=== PATIENT | male | born 1945 | race Caucasian/White ===

== ENCOUNTER 2021-09-03 00:19 | Inpatient (IN) | payer MEDICARE, MEDICAID ==
[2021-09-03] VITALS (61 sets, daily range): BP systolic 70–167; BP diastolic 35–84
[~2021-09-03] VITALS: Ht 175.3 cm; Wt 70.8 kg
[2021-09-03] MEDS ORDERED: ONDANSETRON HCL 4MG/2ML INJ IV STA (00:24)
[2021-09-03] MEDS ORDERED: ETOMIDATE 2MG/ML 10ML VIAL IV ONE (00:30)
[2021-09-03] MEDS ORDERED: SODIUM CHLORIDE 0.9% 1,000 ML IV ONE (00:30)
[2021-09-03] MEDS ORDERED: PROPOFOL 10MG/ML 100ML 100 ML IV ONE (00:30)
[2021-09-03] MEDS ORDERED: VANCOMYCIN 1 G PREMIX 200 ML IV ONE (00:30)
[2021-09-03] MEDS ORDERED: VECURONIUM BROMIDE 10 MG/VIAL IV ONE (00:30)
[2021-09-03] MEDS ORDERED: PIPERACILLIN/TAZ 3.375G PREMIX 50 ML IV ONE (00:30)
[2021-09-03 01:31] LABS: BG BASE EXCESS -4.6 mmol/L (-2.0-2.0); BG CARBOXYHEMOGLOBIN 0.3 % (0.5-1.5); BG DEOXYHEMOGLOBIN 1.6 % (0.0-5.0); BG FRACTION INSPIRED OXYGEN 100; BG HCO3 ACT 22.5 mmol/L (22.0-26.0); BG METHEMOGLOBIN 0.2 % (0.0-1.5); BG OXYGEN SATURATION 98.4 % (92.0-98.5); BG OXYHEMOGLOBIN 97.9 % (94.0-97.0); BG PCO2 50.3 mmHg (35.0-45.0); BG PH 7.269 (7.350-7.450); BG PO2 161.3 mmHg (75.0-100.0); BG SAMPLE SITE RIGHT RADIAL; BG TOTAL HEMOGLOBIN 12.6 g/dL (12.0-18.0); BG TOTAL RESPIRATORY RATE 22 b/min; BG VENT MODE VENT - AC
[2021-09-03 01:52] LABS: HEMATOCRIT. 37.3 % (42.0-52.0); HEMOGLOBIN. 11.7 g/dL (14.0-18.0); MEAN CORPUSCULAR HEMOGLOBIN 29.4 pg (28.0-32.0); MEAN CORPUSCULAR VOLUME 93.9 fL (80.0-94.0); MEAN PLATELET VOLUME 10.8 fl (7.4-10.4); PLATELET 293 x1000/uL (130-400); RED BLOOD CELL COUNT 3.97 mill/uL (4.7-6.1); RED CELL DISTRIBUTION WIDTH 16.4 % (11.6-14.6)
[2021-09-03 01:54] LABS: CLARITY URINE CLEAR (CLEAR); COLOR URINE YELLOW (YELLOW); KETONES URINE NEGATIVE (NEGATIVE); LEUKOCYTE ESTERASE URINE NEGATIVE (NEGATIVE); NITRITE URINE NEGATIVE (NEGATIVE); OCCULT BLOOD URINE 1+ (NEGATIVE); PROTEIN URINE TRACE (NEGATIVE); SPECIFIC GRAVITY URINE 1.017 (1.005-1.030); UROBILINOGEN URINE 0.2 E.U./dL (0.2-1.0)
[2021-09-03 01:57] LABS: CHLORIDE 123 mEq/L (98-107)
[2021-09-03] MEDS ORDERED: NOREPINEPHRINE 8MG/250ML PMX 250 ML IV STA (01:59)
[2021-09-03] MEDS ORDERED: HEPARIN 25,000 UNITS PREMIX 250 ML IV STA (02:13)
[2021-09-03] MEDS ORDERED: HEPARIN 5000 UNITS/ML VIAL IV ONE (02:15)
[2021-09-03] MEDS ORDERED: NOREPINEPHRINE 8 MG in DEXT 5% WATER 242 ML IV PRN ×2 (02:30→09:45)
[2021-09-03] MEDS ORDERED: NOREPINEPHRINE 8 MG in DEXT 5% WATER 250 ML IV PRN (02:30)
[2021-09-03] MEDS ORDERED: HEPARIN 80 UNITS/KG BOLUS IV SCH (03:00)
[2021-09-03] MEDS ORDERED: HEPARIN BOLUS PRN aPTT 37-44 IV (03:00)
[2021-09-03] MEDS ORDERED: HEPARIN 25,000 UNITS PREMIX 250 ML IV SCH (03:00)
[2021-09-03] MEDS ORDERED: HEPARIN BOLUS PRN aPTT <36 IV (03:00)
[2021-09-03 03:08] LABS: INR 1.1; PARTIAL THROMBOPLASTIN TIME 27.2 sec (23.4-31.0); PROTHROMBIN TIME 12.2 sec (9.6-11.0)
[2021-09-03 05:25] LABS: PLATELET ESTIMATE NORMAL
[2021-09-03] MEDS ORDERED: PANTOPRAZOLE SODIUM 40 MG/VIAL IV SCH (10:00)
[2021-09-03] MEDS ORDERED: SODIUM CHLORIDE 0.9% 1,000 ML IV SCH (10:00)
[2021-09-03] MEDS: PROPOFOL 10MG/ML 100ML 100 ML IV PRN ×3 (10:10→22:47)
[2021-09-03 10:34] LABS: BG BASE EXCESS -2.4 mmol/L (-2.0-2.0); BG CARBOXYHEMOGLOBIN 0.3 % (0.5-1.5); BG DEOXYHEMOGLOBIN 5.4 % (0.0-5.0); BG FRACTION INSPIRED OXYGEN 80; BG HCO3 ACT 25.3 mmol/L (22.0-26.0); BG METHEMOGLOBIN 0.3 % (0.0-1.5); BG OXYGEN SATURATION 94.6 % (92.0-98.5); BG PCO2 57.3 mmHg (35.0-45.0); BG PH 7.263 (7.350-7.450); BG PO2 86.4 mmHg (75.0-100.0); BG SAMPLE SITE LEFT RADIAL; BG TOTAL HEMOGLOBIN 12.1 g/dL (12.0-18.0); BG TOTAL RESPIRATORY RATE 23 b/min; BG VENT MODE VENT - AC
[2021-09-03] MEDS: IPRATROPIUM/ALBUTEROL 0.5-3(2.5)MG/3ML NEB HHN SCH ×3 (12:58→20:07)
[2021-09-03] MEDS ORDERED: NOREPINEPHRINE 32 MG in DEXT 5% WATER 218 ML IV PRN (13:00)
[2021-09-03] MEDS ORDERED: PANTOPRAZOLE 80 MG in SODIUM CHLORIDE 0.9% 100 ML IV SCH ×2 (13:00→14:00)
[2021-09-03] MEDS ORDERED: DEXT 5%/0.45% NACL 1000ML 1,000 ML IV SCH (13:00)
[2021-09-03] MEDS: DEXTROSE 5% WATER 1,000 ML IV SCH ×2 (13:03→22:45)
[2021-09-03] MEDS ORDERED: PHENYLEPHRINE 50 MG in DEXT 5% WATER 245 ML IV PRN (14:00)
[2021-09-03 15:06] LABS: HEMATOCRIT 38.3 % (42.0-52.0); HEMOGLOBIN 11.9 g/dL (14.0-18.0)
[2021-09-03 15:29] LABS: CREATINE KINASE 107 IU/L (39-308)
[2021-09-03] MEDS: PIPERACILLIN/TAZOBACTAM 3.375 G in DEXTROSE 5% WATER 50 ML IV SCH ×2 (15:41→22:45)
[2021-09-03] MEDS: NOREPINEPHRINE 32 MG in DEXT 5% WATER 218 ML IV PRN (15:42)
[2021-09-03] MEDS ORDERED: IPRATROPIUM/ALBUTEROL 0.5-3(2.5)MG/3ML NEB HHN SCH (16:00)
[2021-09-03] MEDS ORDERED: OCTREOTIDE 1,000 MCG in SODIUM CHLORIDE 0.9% 98 ML IV SCH (16:30)
[2021-09-03 19:02] LABS: FOLIC ACID (FOLATE) SERUM 12.5 ng/mL (>5.38)
[2021-09-03] MEDS ORDERED: VANCOMYCIN 750 MG PREMIX 150 ML IV SCH (20:00)
[2021-09-03] MEDS: PANTOPRAZOLE SODIUM 40 MG/VIAL IV SCH (21:36)
[2021-09-04] VITALS (92 sets, daily range): BP systolic 83–179; BP diastolic 46–111
[2021-09-04] MEDS: IPRATROPIUM/ALBUTEROL 0.5-3(2.5)MG/3ML NEB HHN SCH ×6 (00:29→21:16)
[2021-09-04 01:07] LABS: HEMATOCRIT. 34.7 % (42.0-52.0); HEMOGLOBIN. 10.9 g/dL (14.0-18.0); MEAN CORPUSCULAR HEMOGLOBIN 29.1 pg (28.0-32.0); MEAN CORPUSCULAR VOLUME 93.1 fL (80.0-94.0); MEAN PLATELET VOLUME 10.2 fl (7.4-10.4); PLATELET 240 x1000/uL (130-400); RED BLOOD CELL COUNT 3.72 mill/uL (4.7-6.1); RED CELL DISTRIBUTION WIDTH 16.2 % (11.6-14.6)
[2021-09-04] MEDS: PROPOFOL 10MG/ML 100ML 100 ML IV PRN ×3 (05:14→17:26)
[2021-09-04] MEDS: PIPERACILLIN/TAZOBACTAM 3.375 G in DEXTROSE 5% WATER 50 ML IV SCH ×3 (05:21→22:42)
[2021-09-04 06:02] LABS: HEMATOCRIT. 33.3 % (42.0-52.0); HEMOGLOBIN. 10.4 g/dL (14.0-18.0); MEAN CORPUSCULAR HEMOGLOBIN 29.5 pg (28.0-32.0); MEAN CORPUSCULAR VOLUME 94.4 fL (80.0-94.0); PLATELET 214 x1000/uL (130-400); RED BLOOD CELL COUNT 3.53 mill/uL (4.7-6.1); RED CELL DISTRIBUTION WIDTH 16.7 % (11.6-14.6)
[2021-09-04 07:03] LABS: PLATELET ESTIMATE NORMAL
[2021-09-04] MEDS: PANTOPRAZOLE SODIUM 40 MG/VIAL IV SCH ×2 (08:38→20:30)
[2021-09-04] MEDS: DEXTROSE 5% WATER 1,000 ML IV SCH ×2 (09:01→19:50)
[2021-09-04] MEDS ORDERED: DEXTROSE 50% WATER 50ML SYRINGE IV PRN (10:30)
[2021-09-04 11:10] LABS: BG BASE EXCESS 0.7 mmol/L (-2.0-2.0); BG CARBOXYHEMOGLOBIN 0.3 % (0.5-1.5); BG DEOXYHEMOGLOBIN 0.9 % (0.0-5.0); BG FRACTION INSPIRED OXYGEN 70; BG HCO3 ACT 25.6 mmol/L (22.0-26.0); BG METHEMOGLOBIN 0.2 % (0.0-1.5); BG OXYGEN SATURATION 99.1 % (92.0-98.5); BG OXYHEMOGLOBIN 98.6 % (94.0-97.0); BG PCO2 42.3 mmHg (35.0-45.0); BG PO2 156.8 mmHg (75.0-100.0); BG SAMPLE SITE RIGHT RADIAL; BG TOTAL HEMOGLOBIN 10.6 g/dL (12.0-18.0); BG VENT MODE VENT - AC
[2021-09-04] MEDS: BLOOD SUGAR DIAGNOSTIC STRIP TEST SCH ×2 (12:33→17:41)
[2021-09-04] MEDS: INSULIN LISPRO 100 UNITS/ML SUBCUT SCH ×2 (12:38→17:42)
[2021-09-04] MEDS ORDERED: IOHEXOL-300 100 ML BOTTLE ONE (12:57)
[2021-09-04] MEDS ORDERED: LIDOCAINE HCL 1% 20ML VIAL (Pyxis) INJ ONE (12:58)
[2021-09-04 14:48] LABS: PLATELET ESTIMATE NORMAL
[2021-09-04 15:13] LABS: HEMATOCRIT. 33.8 % (42.0-52.0); HEMOGLOBIN. 10.5 g/dL (14.0-18.0); MEAN CORPUSCULAR VOLUME 93.2 fL (80.0-94.0); MEAN PLATELET VOLUME 10.4 fl (7.4-10.4); PLATELET 192 x1000/uL (130-400); RED BLOOD CELL COUNT 3.63 mill/uL (4.7-6.1)
[2021-09-04 16:02] LABS: PLATELET ESTIMATE NORMAL
[2021-09-04 18:36] LABS: HEMATOCRIT. 29.9 % (42.0-52.0); HEMOGLOBIN. 9.5 g/dL (14.0-18.0); MEAN CORPUSCULAR HEMOGLOBIN 29.5 pg (28.0-32.0); MEAN CORPUSCULAR VOLUME 92.6 fL (80.0-94.0); MEAN PLATELET VOLUME 9.9 fl (7.4-10.4); PLATELET 171 x1000/uL (130-400); RED BLOOD CELL COUNT 3.23 mill/uL (4.7-6.1); RED CELL DISTRIBUTION WIDTH 15.8 % (11.6-14.6)
[2021-09-04 20:38] LABS: PLATELET ESTIMATE NORMAL
[2021-09-04] MEDS ORDERED: VANCOMYCIN 1 G PREMIX 200 ML IV SCH (21:00)
[2021-09-04] MEDS: NYSTATIN POWDER 15GM TOP SCH (22:43)
[2021-09-05] VITALS (97 sets, daily range): BP systolic 87–153; BP diastolic 43–74
[2021-09-05] MEDS: BLOOD SUGAR DIAGNOSTIC STRIP TEST SCH ×4 (00:35→18:02)
[2021-09-05] MEDS: PROPOFOL 10MG/ML 100ML 100 ML IV PRN ×3 (00:41→17:26)
[2021-09-05] MEDS: INSULIN LISPRO 100 UNITS/ML SUBCUT SCH ×4 (00:43→18:06)
[2021-09-05] MEDS: IPRATROPIUM/ALBUTEROL 0.5-3(2.5)MG/3ML NEB HHN SCH ×6 (00:47→20:02)
[2021-09-05] MEDS: DEXTROSE 5% WATER 1,000 ML IV SCH ×2 (05:31→20:51)
[2021-09-05] MEDS: PIPERACILLIN/TAZOBACTAM 3.375 G in DEXTROSE 5% WATER 50 ML IV SCH ×3 (05:32→21:09)
[2021-09-05] MEDS: NYSTATIN POWDER 15GM TOP SCH ×3 (05:45→21:13)
[2021-09-05 05:55] LABS: CHLORIDE 116 mEq/L (98-107)
[2021-09-05 05:57] LABS: HEMOGLOBIN. 9.8 g/dL (14.0-18.0); MEAN CORPUSCULAR HEMOGLOBIN 29.7 pg (28.0-32.0); MEAN CORPUSCULAR VOLUME 91.3 fL (80.0-94.0); MEAN PLATELET VOLUME 10.6 fl (7.4-10.4); PLATELET 161 x1000/uL (130-400); RED BLOOD CELL COUNT 3.29 mill/uL (4.7-6.1); RED CELL DISTRIBUTION WIDTH 15.3 % (11.6-14.6)
[2021-09-05 08:07] LABS: BG BASE EXCESS 0.9 mmol/L (-2.0-2.0); BG CARBOXYHEMOGLOBIN 0.3 % (0.5-1.5); BG DEOXYHEMOGLOBIN 4.2 % (0.0-5.0); BG HCO3 ACT 24.6 mmol/L (22.0-26.0); BG METHEMOGLOBIN 0.1 % (0.0-1.5); BG OXYGEN SATURATION 95.8 % (92.0-98.5); BG OXYHEMOGLOBIN 95.4 % (94.0-97.0); BG PCO2 35.8 mmHg (35.0-45.0); BG PH 7.455 (7.350-7.450); BG PO2 81.1 mmHg (75.0-100.0); BG SAMPLE SITE RIGHT RADIAL; BG TOTAL HEMOGLOBIN 10.3 g/dL (12.0-18.0); BG VENT MODE VENT - AC
[2021-09-05] MEDS: PANTOPRAZOLE SODIUM 40 MG/VIAL IV SCH ×2 (08:50→20:51)
[2021-09-05 09:21] LABS: PLATELET ESTIMATE NORMAL
[2021-09-05] MEDS ORDERED: VANCOMYCIN 750 MG PREMIX 150 ML IV SCH (10:00)
[2021-09-05] MEDS ORDERED: POTASSIUM CHLORIDE 20MEQ/PACKET PO NR (10:45)
[2021-09-05] MEDS ORDERED: POTASSIUM CHLORIDE INJ 40 MEQ in DEXT 5% WATER 250 ML IV ONE (10:45)
[2021-09-05] MEDS: KCL 20MEQ/100ML PREMIX 100 ML IV SCH ×2 (12:56→14:15)
[2021-09-06] VITALS (103 sets, daily range): BP systolic 11–172; BP diastolic 40–75
[2021-09-06] MEDS: IPRATROPIUM/ALBUTEROL 0.5-3(2.5)MG/3ML NEB HHN SCH ×6 (00:11→20:34)
[2021-09-06] MEDS: BLOOD SUGAR DIAGNOSTIC STRIP TEST SCH ×5 (00:39→23:48)
[2021-09-06] MEDS: INSULIN LISPRO 100 UNITS/ML SUBCUT SCH ×4 (00:40→17:33)
[2021-09-06] MEDS: PROPOFOL 10MG/ML 100ML 100 ML IV PRN ×4 (00:56→20:12)
[2021-09-06] MEDS: DEXTROSE 5% WATER 1,000 ML IV SCH (01:56)
[2021-09-06] MEDS: NYSTATIN POWDER 15GM TOP SCH ×3 (05:53→21:37)
[2021-09-06] MEDS: PIPERACILLIN/TAZOBACTAM 3.375 G in DEXTROSE 5% WATER 50 ML IV SCH ×3 (05:54→21:37)
[2021-09-06 06:09] LABS: PHOSPHORUS 2.9 mg/dL (2.5-4.9)
[2021-09-06 07:00] LABS: HEMATOCRIT. 28.2 % (42.0-52.0); HEMOGLOBIN. 9.1 g/dL (14.0-18.0); MEAN CORPUSCULAR HEMOGLOBIN 29.5 pg (28.0-32.0); MEAN CORPUSCULAR VOLUME 91.1 fL (80.0-94.0); MEAN PLATELET VOLUME 10.6 fl (7.4-10.4); PLATELET 142 x1000/uL (130-400); RED CELL DISTRIBUTION WIDTH 15.8 % (11.6-14.6)
[2021-09-06] MEDS ORDERED: POTASSIUM CHLORIDE 20MEQ/PACKET PO SCH (07:00)
[2021-09-06] MEDS: PANTOPRAZOLE SODIUM 40 MG/VIAL IV SCH ×2 (08:00→20:39)
[2021-09-06] MEDS: MIDODRINE HCL 5MG TABLET PO SCH ×3 (08:00→16:34)
[2021-09-06] MEDS: NOREPINEPHRINE 32 MG in DEXT 5% WATER 218 ML IV PRN (08:19)
[2021-09-06] MEDS ORDERED: IOHEXOL-300 100 ML BOTTLE ONE (08:42)
[2021-09-06] MEDS ORDERED: LIDOCAINE HCL 1% 20ML VIAL (Pyxis) INJ ONE (08:42)
[2021-09-06 08:55] LABS: PLATELET ESTIMATE NORMAL
[2021-09-06 09:09] LABS: BG BASE EXCESS 1.4 mmol/L (-2.0-2.0); BG CARBOXYHEMOGLOBIN 0.3 % (0.5-1.5); BG DEOXYHEMOGLOBIN 2.7 % (0.0-5.0); BG FRACTION INSPIRED OXYGEN 50; BG HCO3 ACT 24.9 mmol/L (22.0-26.0); BG METHEMOGLOBIN 0.2 % (0.0-1.5); BG OXYGEN SATURATION 97.3 % (92.0-98.5); BG OXYHEMOGLOBIN 96.8 % (94.0-97.0); BG PCO2 34.9 mmHg (35.0-45.0); BG PH 7.471 (7.350-7.450); BG PO2 98.4 mmHg (75.0-100.0); BG SAMPLE SITE RIGHT RADIAL; BG TOTAL HEMOGLOBIN 9.7 g/dL (12.0-18.0); BG VENT MODE VENT - AC
[2021-09-06] MEDS ORDERED: DIATR MEGLU/DIATRIZOATE SOLN 30ML ONE (16:13)
[2021-09-06] MEDS: DOCUSATE SODIUM SUGAR FREE 100MG/10ML UDC NG SCH (16:34)
[2021-09-06] MEDS: POLYETHYLENE GLYCOL 3350 (17GM) 1 DOSE PACK NG SCH (16:35)
[2021-09-06] MEDS ORDERED: SENNOSIDES 8.6MG TABLET NG PRN (21:00)
[2021-09-07] VITALS (106 sets, daily range): BP systolic 57–201; BP diastolic 41–108
[2021-09-07] MEDS: INSULIN LISPRO 100 UNITS/ML SUBCUT SCH ×5 (00:03→23:42)
[2021-09-07] MEDS: IPRATROPIUM/ALBUTEROL 0.5-3(2.5)MG/3ML NEB HHN SCH ×6 (00:42→20:16)
[2021-09-07] MEDS: PROPOFOL 10MG/ML 100ML 100 ML IV PRN ×4 (04:08→22:28)
[2021-09-07] MEDS: BLOOD SUGAR DIAGNOSTIC STRIP TEST SCH ×4 (05:31→23:25)
[2021-09-07] MEDS: NYSTATIN POWDER 15GM TOP SCH ×3 (05:50→21:31)
[2021-09-07 05:51] LABS: HEMATOCRIT. 27.1 % (42.0-52.0); HEMOGLOBIN. 8.8 g/dL (14.0-18.0); MEAN CORPUSCULAR HEMOGLOBIN 29.3 pg (28.0-32.0); MEAN CORPUSCULAR VOLUME 90.3 fL (80.0-94.0); MEAN PLATELET VOLUME 10.8 fl (7.4-10.4); PLATELET 156 x1000/uL (130-400); RED CELL DISTRIBUTION WIDTH 15.4 % (11.6-14.6)
[2021-09-07] MEDS: PIPERACILLIN/TAZOBACTAM 3.375 G in DEXTROSE 5% WATER 50 ML IV SCH (06:00)
[2021-09-07 06:05] LABS: PHOSPHORUS 2.9 mg/dL (2.5-4.9)
[2021-09-07] MEDS: PANTOPRAZOLE SODIUM 40 MG/VIAL IV SCH ×2 (08:55→20:55)
[2021-09-07] MEDS: MIDODRINE HCL 5MG TABLET PO SCH ×3 (08:55→18:13)
[2021-09-07] MEDS: POLYETHYLENE GLYCOL 3350 (17GM) 1 DOSE PACK NG SCH (08:55)
[2021-09-07] MEDS: DOCUSATE SODIUM SUGAR FREE 100MG/10ML UDC NG SCH (08:55)
[2021-09-07] MEDS ORDERED: POTASSIUM CHLORIDE 20MEQ TABLET SR PO SCH (10:45)
[2021-09-07 12:52] LABS: PLATELET ESTIMATE NORMAL
[2021-09-07] MEDS: CEFTRIAXONE 2 G in DEXTROSE 5% WATER 50 ML IV SCH (14:44)
[2021-09-07 15:58] LABS: BG BASE EXCESS 2.5 mmol/L (-2.0-2.0); BG CARBOXYHEMOGLOBIN 0.3 % (0.5-1.5); BG DEOXYHEMOGLOBIN 3.2 % (0.0-5.0); BG HCO3 ACT 25.2 mmol/L (22.0-26.0); BG METHEMOGLOBIN 0.3 % (0.0-1.5); BG OXYGEN SATURATION 96.8 % (92.0-98.5); BG OXYHEMOGLOBIN 96.2 % (94.0-97.0); BG PCO2 31.8 mmHg (35.0-45.0); BG PH 7.517 (7.350-7.450); BG PO2 90.7 mmHg (75.0-100.0); BG SAMPLE SITE RIGHT RADIAL; BG TOTAL HEMOGLOBIN 8.9 g/dL (12.0-18.0); BG VENT MODE VENT - AC
[2021-09-08] VITALS (93 sets, daily range): BP systolic 81–140; BP diastolic 45–97
[2021-09-08] MEDS: IPRATROPIUM/ALBUTEROL 0.5-3(2.5)MG/3ML NEB HHN SCH ×6 (00:17→20:06)
[2021-09-08] MEDS: PROPOFOL 10MG/ML 100ML 100 ML IV PRN ×5 (02:57→17:44)
[2021-09-08] MEDS: INSULIN LISPRO 100 UNITS/ML SUBCUT SCH ×4 (06:00→23:57)
[2021-09-08] MEDS: BLOOD SUGAR DIAGNOSTIC STRIP TEST SCH ×4 (06:04→23:49)
[2021-09-08] MEDS: NYSTATIN POWDER 15GM TOP SCH ×3 (06:05→22:00)
[2021-09-08 06:15] LABS: HEMOGLOBIN. 9.9 g/dL (14.0-18.0); MEAN CORPUSCULAR VOLUME 91.2 fL (80.0-94.0); MEAN PLATELET VOLUME 10.4 fl (7.4-10.4); PLATELET 149 x1000/uL (130-400); RED BLOOD CELL COUNT 3.29 mill/uL (4.7-6.1); RED CELL DISTRIBUTION WIDTH 15.7 % (11.6-14.6)
[2021-09-08 08:20] LABS: BG BASE EXCESS 0.7 mmol/L (-2.0-2.0); BG CARBOXYHEMOGLOBIN 0.3 % (0.5-1.5); BG DEOXYHEMOGLOBIN 4.6 % (0.0-5.0); BG HCO3 ACT 24.2 mmol/L (22.0-26.0); BG METHEMOGLOBIN 0.2 % (0.0-1.5); BG OXYGEN SATURATION 95.4 % (92.0-98.5); BG OXYHEMOGLOBIN 94.9 % (94.0-97.0); BG PO2 78.2 mmHg (75.0-100.0); BG SAMPLE SITE LEFT RADIAL; BG VENT MODE VENT - AC
[2021-09-08] MEDS: PANTOPRAZOLE SODIUM 40 MG/VIAL IV SCH ×2 (08:53→20:43)
[2021-09-08] MEDS: DOCUSATE SODIUM SUGAR FREE 100MG/10ML UDC NG SCH (09:07)
[2021-09-08] MEDS: MIDODRINE HCL 5MG TABLET PO SCH ×3 (09:08→16:13)
[2021-09-08] MEDS: POLYETHYLENE GLYCOL 3350 (17GM) 1 DOSE PACK NG SCH (09:08)
[2021-09-08 09:41] LABS: PLATELET ESTIMATE NORMAL
[2021-09-08] MEDS: SODIUM CHLORIDE 0.45% 1,000 ML IV SCH (10:38)
[2021-09-08] MEDS: ACETAMINOPHEN 650MG/20.3ML UDC GT PRN ×2 (10:38→17:15)
[2021-09-08] MEDS: CEFTRIAXONE 2 G in DEXTROSE 5% WATER 50 ML IV SCH (13:05)
[2021-09-09] VITALS (95 sets, daily range): BP systolic 84–156; BP diastolic 41–89
[2021-09-09] MEDS: IPRATROPIUM/ALBUTEROL 0.5-3(2.5)MG/3ML NEB HHN SCH ×6 (00:20→20:54)
[2021-09-09] MEDS: SODIUM CHLORIDE 0.45% 1,000 ML IV SCH ×2 (00:30→13:20)
[2021-09-09] MEDS: PROPOFOL 10MG/ML 100ML 100 ML IV PRN ×5 (01:36→22:47)
[2021-09-09] MEDS: NYSTATIN POWDER 15GM TOP SCH ×3 (05:27→21:40)
[2021-09-09 05:35] LABS: HEMATOCRIT. 28.3 % (42.0-52.0); HEMOGLOBIN. 9.2 g/dL (14.0-18.0); MEAN CORPUSCULAR HEMOGLOBIN 29.4 pg (28.0-32.0); MEAN CORPUSCULAR VOLUME 90.9 fL (80.0-94.0); PLATELET 143 x1000/uL (130-400); RED BLOOD CELL COUNT 3.12 mill/uL (4.7-6.1); RED CELL DISTRIBUTION WIDTH 15.5 % (11.6-14.6)
[2021-09-09] MEDS: BLOOD SUGAR DIAGNOSTIC STRIP TEST SCH ×3 (05:53→17:30)
[2021-09-09] MEDS: INSULIN LISPRO 100 UNITS/ML SUBCUT SCH ×3 (06:00→17:35)
[2021-09-09] MEDS: DOCUSATE SODIUM SUGAR FREE 100MG/10ML UDC NG SCH (08:24)
[2021-09-09] MEDS: MIDODRINE HCL 5MG TABLET PO SCH ×3 (08:25→17:34)
[2021-09-09] MEDS: PANTOPRAZOLE SODIUM 40 MG/VIAL IV SCH ×2 (08:25→20:42)
[2021-09-09] MEDS: POLYETHYLENE GLYCOL 3350 (17GM) 1 DOSE PACK NG SCH (08:25)
[2021-09-09] MEDS ORDERED: POTASSIUM CHLORIDE 20MEQ/PACKET PO NR (08:30)
[2021-09-09 10:20] LABS: BG BASE EXCESS 0.7 mmol/L (-2.0-2.0); BG CARBOXYHEMOGLOBIN 0.3 % (0.5-1.5); BG DEOXYHEMOGLOBIN 0.7 % (0.0-5.0); BG FRACTION INSPIRED OXYGEN 100; BG METHEMOGLOBIN 0.4 % (0.0-1.5); BG OXYGEN SATURATION 99.3 % (92.0-98.5); BG OXYHEMOGLOBIN 98.6 % (94.0-97.0); BG PCO2 44.9 mmHg (35.0-45.0); BG PH 7.381 (7.350-7.450); BG PO2 302.6 mmHg (75.0-100.0); BG SAMPLE SITE RIGHT RADIAL; BG TOTAL HEMOGLOBIN 8.9 g/dL (12.0-18.0); BG VENT MODE VENT - AC
[2021-09-09] MEDS: CEFTRIAXONE 2 G in DEXTROSE 5% WATER 50 ML IV SCH (13:20)
[2021-09-09 13:57] LABS: PLATELET ESTIMATE NORMAL
[2021-09-10] VITALS (92 sets, daily range): BP systolic 73–182; BP diastolic 32–130
[2021-09-10] MEDS: BLOOD SUGAR DIAGNOSTIC STRIP TEST SCH ×4 (00:06→18:09)
[2021-09-10] MEDS: INSULIN LISPRO 100 UNITS/ML SUBCUT SCH ×4 (00:11→17:17)
[2021-09-10] MEDS: IPRATROPIUM/ALBUTEROL 0.5-3(2.5)MG/3ML NEB HHN SCH ×6 (01:14→20:35)
[2021-09-10] MEDS: SODIUM CHLORIDE 0.45% 1,000 ML IV SCH (03:30)
[2021-09-10] MEDS: PROPOFOL 10MG/ML 100ML 100 ML IV PRN ×3 (03:54→19:43)
[2021-09-10 05:40] LABS: EOSINOPHILS % 1.2 % (0.0-5.0); HEMATOCRIT. 25.5 % (42.0-52.0); HEMOGLOBIN. 8.1 g/dL (14.0-18.0); LYMPHOCYTES % 7.6 % (20.0-50.0); MEAN CORPUSCULAR HEMOGLOBIN 29.6 pg (28.0-32.0); MEAN CORPUSCULAR VOLUME 92.5 fL (80.0-94.0); MEAN PLATELET VOLUME 10.9 fl (7.4-10.4); NEUTROPHILS % 88.2 % (40.0-76.0); PLATELET 147 x1000/uL (130-400); RED BLOOD CELL COUNT 2.75 mill/uL (4.7-6.1); RED CELL DISTRIBUTION WIDTH 15.4 % (11.6-14.6)
[2021-09-10 05:59] LABS: PHOSPHORUS 3.5 mg/dL (2.5-4.9)
[2021-09-10] MEDS: NYSTATIN POWDER 15GM TOP SCH ×3 (06:15→21:24)
[2021-09-10] MEDS ORDERED: POTASSIUM CHLORIDE 20MEQ/PACKET PO NR (08:15)
[2021-09-10] MEDS: MIDODRINE HCL 5MG TABLET PO SCH ×3 (08:23→16:06)
[2021-09-10] MEDS: PANTOPRAZOLE SODIUM 40 MG/VIAL IV SCH ×2 (08:23→21:24)
[2021-09-10] MEDS: DOCUSATE SODIUM SUGAR FREE 100MG/10ML UDC NG SCH (08:23)
[2021-09-10 08:49] LABS: BG BASE EXCESS -1.4 mmol/L (-2.0-2.0); BG CARBOXYHEMOGLOBIN 0.3 % (0.5-1.5); BG HCO3 ACT 22.2 mmol/L (22.0-26.0); BG METHEMOGLOBIN 0.2 % (0.0-1.5); BG OXYHEMOGLOBIN 94.5 % (94.0-97.0); BG PCO2 32.8 mmHg (35.0-45.0); BG PH 7.448 (7.350-7.450); BG SAMPLE SITE LEFT RADIAL; BG TOTAL HEMOGLOBIN 8.9 g/dL (12.0-18.0); BG VENT MODE VENT - AC
[2021-09-10] MEDS: POLYETHYLENE GLYCOL 3350 (17GM) 1 DOSE PACK NG SCH (09:00)
[2021-09-10] MEDS: CEFTRIAXONE 2 G in DEXTROSE 5% WATER 50 ML IV SCH (13:06)
[2021-09-11] VITALS (95 sets, daily range): BP systolic 99–184; BP diastolic 39–154
[2021-09-11] MEDS: IPRATROPIUM/ALBUTEROL 0.5-3(2.5)MG/3ML NEB HHN SCH ×6 (00:28→20:30)
[2021-09-11] MEDS: PROPOFOL 10MG/ML 100ML 100 ML IV PRN ×4 (04:23→22:47)
[2021-09-11 05:22] LABS: HEMATOCRIT. 25.5 % (42.0-52.0); HEMOGLOBIN. 8.2 g/dL (14.0-18.0); MEAN CORPUSCULAR HEMOGLOBIN 29.6 pg (28.0-32.0); MEAN CORPUSCULAR VOLUME 91.6 fL (80.0-94.0); MEAN PLATELET VOLUME 10.7 fl (7.4-10.4); PLATELET 170 x1000/uL (130-400); RED BLOOD CELL COUNT 2.78 mill/uL (4.7-6.1); RED CELL DISTRIBUTION WIDTH 15.7 % (11.6-14.6)
[2021-09-11] MEDS: BLOOD SUGAR DIAGNOSTIC STRIP TEST SCH ×5 (06:00→23:42)
[2021-09-11] MEDS: INSULIN LISPRO 100 UNITS/ML SUBCUT SCH ×5 (06:00→23:45)
[2021-09-11] MEDS: NYSTATIN POWDER 15GM TOP SCH ×3 (06:26→22:15)
[2021-09-11 07:46] LABS: PLATELET ESTIMATE NORMAL
[2021-09-11] MEDS: DOCUSATE SODIUM SUGAR FREE 100MG/10ML UDC NG SCH (08:15)
[2021-09-11] MEDS: POLYETHYLENE GLYCOL 3350 (17GM) 1 DOSE PACK NG SCH (08:15)
[2021-09-11] MEDS: PANTOPRAZOLE SODIUM 40 MG/VIAL IV SCH ×2 (08:15→21:32)
[2021-09-11] MEDS: MIDODRINE HCL 5MG TABLET PO SCH ×3 (08:16→16:01)
[2021-09-11] MEDS: CEFTRIAXONE 2 G in DEXTROSE 5% WATER 50 ML IV SCH (13:46)
[2021-09-12] VITALS (60 sets, daily range): BP systolic 106–151; BP diastolic 36–73
[2021-09-12] MEDS: IPRATROPIUM/ALBUTEROL 0.5-3(2.5)MG/3ML NEB HHN SCH ×6 (00:39→20:32)
[2021-09-12 05:30] LABS: HEMATOCRIT. 24.8 % (42.0-52.0); MEAN CORPUSCULAR HEMOGLOBIN 29.7 pg (28.0-32.0); MEAN CORPUSCULAR VOLUME 91.9 fL (80.0-94.0); MEAN PLATELET VOLUME 10.3 fl (7.4-10.4); PLATELET 190 x1000/uL (130-400); RED CELL DISTRIBUTION WIDTH 15.3 % (11.6-14.6)
[2021-09-12] MEDS: BLOOD SUGAR DIAGNOSTIC STRIP TEST SCH ×3 (06:05→18:11)
[2021-09-12] MEDS: INSULIN LISPRO 100 UNITS/ML SUBCUT SCH ×3 (06:06→18:14)
[2021-09-12] MEDS: NYSTATIN POWDER 15GM TOP SCH ×3 (06:08→21:42)
[2021-09-12] MEDS: POLYETHYLENE GLYCOL 3350 (17GM) 1 DOSE PACK NG SCH (09:00)
[2021-09-12] MEDS: PANTOPRAZOLE SODIUM 40 MG/VIAL IV SCH ×2 (09:00→21:40)
[2021-09-12] MEDS: DOCUSATE SODIUM SUGAR FREE 100MG/10ML UDC NG SCH (09:00)
[2021-09-12] MEDS: MIDODRINE HCL 5MG TABLET PO SCH ×3 (09:00→17:00)
[2021-09-12 09:37] LABS: PLATELET ESTIMATE NORMAL
[2021-09-12] MEDS: CEFTRIAXONE 2 G in DEXTROSE 5% WATER 50 ML IV SCH (14:00)
[2021-09-12] MEDS: PROPOFOL 10MG/ML 100ML 100 ML IV SCH ×2 (15:16→19:58)
[2021-09-13] VITALS (99 sets, daily range): BP systolic 102–141; BP diastolic 44–79
[2021-09-13] MEDS: IPRATROPIUM/ALBUTEROL 0.5-3(2.5)MG/3ML NEB HHN SCH ×6 (00:42→20:47)
[2021-09-13] MEDS: PROPOFOL 10MG/ML 100ML 100 ML IV SCH ×2 (01:23→09:18)
[2021-09-13 05:16] LABS: HEMATOCRIT. 23.5 % (42.0-52.0); HEMOGLOBIN. 7.4 g/dL (14.0-18.0); MEAN CORPUSCULAR HEMOGLOBIN 28.8 pg (28.0-32.0); MEAN PLATELET VOLUME 10.2 fl (7.4-10.4); PLATELET 205 x1000/uL (130-400); RED BLOOD CELL COUNT 2.58 mill/uL (4.7-6.1); RED CELL DISTRIBUTION WIDTH 15.2 % (11.6-14.6)
[2021-09-13] MEDS: NYSTATIN POWDER 15GM TOP SCH ×3 (06:36→21:59)
[2021-09-13] MEDS: DOCUSATE SODIUM SUGAR FREE 100MG/10ML UDC NG SCH (08:01)
[2021-09-13] MEDS: POLYETHYLENE GLYCOL 3350 (17GM) 1 DOSE PACK NG SCH (08:02)
[2021-09-13] MEDS: MIDODRINE HCL 5MG TABLET PO SCH ×3 (08:02→17:26)
[2021-09-13] MEDS: PANTOPRAZOLE SODIUM 40 MG/VIAL IV SCH ×2 (08:02→21:12)
[2021-09-13 08:14] LABS: NUCLEATED RED BLOOD CELLS 1 /100 WBC; PLATELET ESTIMATE NORMAL
[2021-09-13] MEDS: BLOOD SUGAR DIAGNOSTIC STRIP TEST SCH ×2 (12:00→17:19)
[2021-09-13] MEDS ORDERED: POLYETHYLENE GLYCOL 3350 (17GM) 1 DOSE PACK NG PRN (13:15)
[2021-09-13] MEDS ORDERED: DOCUSATE SODIUM SUGAR FREE 100MG/10ML UDC NG PRN (13:15)
[2021-09-13] MEDS: INSULIN LISPRO 100 UNITS/ML SUBCUT SCH ×2 (14:13→17:26)
[2021-09-13] MEDS: PROPOFOL 10MG/ML 100ML 100 ML IV PRN ×2 (16:38→21:58)
[2021-09-13] MEDS: CEFEPIME 1,000 MG in DEXTROSE 5% WATER 50 ML IV SCH (18:44)
[2021-09-13 21:21] LABS: HEMATOCRIT 31.7 % (42.0-52.0); HEMOGLOBIN 9.8 g/dL (14.0-18.0)
[2021-09-13] MEDS: METHYLPREDNISOLONE SOD SUCC 125 MG/2 ML VIAL IV SCH (21:59)
[2021-09-14] VITALS (94 sets, daily range): BP systolic 97–149; BP diastolic 40–79
[2021-09-14] MEDS: IPRATROPIUM/ALBUTEROL 0.5-3(2.5)MG/3ML NEB HHN SCH ×6 (00:09→20:24)
[2021-09-14] MEDS: PROPOFOL 10MG/ML 100ML 100 ML IV PRN ×4 (03:15→17:41)
[2021-09-14 05:27] LABS: HEMATOCRIT. 27.4 % (42.0-52.0); HEMOGLOBIN. 8.7 g/dL (14.0-18.0); MEAN CORPUSCULAR HEMOGLOBIN 28.6 pg (28.0-32.0); PLATELET 227 x1000/uL (130-400); RED BLOOD CELL COUNT 3.04 mill/uL (4.7-6.1); RED CELL DISTRIBUTION WIDTH 15.8 % (11.6-14.6)
[2021-09-14] MEDS: BLOOD SUGAR DIAGNOSTIC STRIP TEST SCH ×4 (05:41→17:22)
[2021-09-14] MEDS: NYSTATIN POWDER 15GM TOP SCH ×3 (05:42→22:16)
[2021-09-14] MEDS: METHYLPREDNISOLONE SOD SUCC 125 MG/2 ML VIAL IV SCH ×3 (05:43→22:17)
[2021-09-14] MEDS: CEFEPIME 1,000 MG in DEXTROSE 5% WATER 50 ML IV SCH ×2 (05:46→17:31)
[2021-09-14] MEDS: INSULIN LISPRO 100 UNITS/ML SUBCUT SCH ×4 (06:34→17:32)
[2021-09-14] MEDS: MIDODRINE HCL 5MG TABLET PO SCH ×3 (10:28→17:32)
[2021-09-14] MEDS: PANTOPRAZOLE SODIUM 40 MG/VIAL IV SCH ×2 (10:28→21:41)
[2021-09-14] MEDS: DEXTROSE 5% WATER 1,000 ML IV SCH (10:29)
[2021-09-14 11:06] LABS: BG BASE EXCESS 3.7 mmol/L (-2.0-2.0); BG CARBOXYHEMOGLOBIN 0.3 % (0.5-1.5); BG DEOXYHEMOGLOBIN 0.8 % (0.0-5.0); BG FRACTION INSPIRED OXYGEN 100; BG METHEMOGLOBIN 0.4 % (0.0-1.5); BG OXYGEN SATURATION 99.2 % (92.0-98.5); BG OXYHEMOGLOBIN 98.5 % (94.0-97.0); BG PCO2 54.8 mmHg (35.0-45.0); BG PH 7.356 (7.350-7.450); BG PO2 324.9 mmHg (75.0-100.0); BG SAMPLE SITE LEFT RADIAL; BG TOTAL HEMOGLOBIN 9.6 g/dL (12.0-18.0); BG VENT MODE VENT - AC
[2021-09-14 15:41] LABS: PLATELET ESTIMATE NORMAL
[2021-09-15] VITALS (97 sets, daily range): BP systolic 113–172; BP diastolic 54–111
[2021-09-15] MEDS: PROPOFOL 10MG/ML 100ML 100 ML IV PRN ×4 (00:14→21:10)
[2021-09-15] MEDS: BLOOD SUGAR DIAGNOSTIC STRIP TEST SCH ×4 (00:18→18:20)
[2021-09-15] MEDS: IPRATROPIUM/ALBUTEROL 0.5-3(2.5)MG/3ML NEB HHN SCH ×6 (00:27→22:22)
[2021-09-15] MEDS: INSULIN LISPRO 100 UNITS/ML SUBCUT SCH ×4 (00:38→18:37)
[2021-09-15 05:06] LABS: HEMATOCRIT. 29.2 % (42.0-52.0); HEMOGLOBIN. 9.4 g/dL (14.0-18.0); MEAN CORPUSCULAR HEMOGLOBIN 28.6 pg (28.0-32.0); MEAN PLATELET VOLUME 9.8 fl (7.4-10.4); PLATELET 297 x1000/uL (130-400); RED BLOOD CELL COUNT 3.29 mill/uL (4.7-6.1); RED CELL DISTRIBUTION WIDTH 15.8 % (11.6-14.6)
[2021-09-15 05:28] LABS: PHOSPHORUS 3.8 mg/dL (2.5-4.9)
[2021-09-15] MEDS: DEXTROSE 5% WATER 1,000 ML IV SCH ×2 (05:41→11:55)
[2021-09-15] MEDS: NYSTATIN POWDER 15GM TOP SCH ×3 (05:42→21:08)
[2021-09-15] MEDS: METHYLPREDNISOLONE SOD SUCC 125 MG/2 ML VIAL IV SCH ×3 (05:42→21:10)
[2021-09-15] MEDS: CEFEPIME 1,000 MG in DEXTROSE 5% WATER 50 ML IV SCH ×2 (05:49→18:35)
[2021-09-15] MEDS: MIDODRINE HCL 5MG TABLET PO SCH ×3 (08:50→17:00)
[2021-09-15] MEDS: PANTOPRAZOLE SODIUM 40 MG/VIAL IV SCH ×2 (08:50→21:10)
[2021-09-15] MEDS ORDERED: NALOXONE HCL 0.4MG/ML VIAL IV PRN (09:15)
[2021-09-15 11:32] LABS: PLATELET ESTIMATE NORMAL
[2021-09-15 15:13] LABS: BG BASE EXCESS 5.3 mmol/L (-2.0-2.0); BG CARBOXYHEMOGLOBIN 0.3 % (0.5-1.5); BG DEOXYHEMOGLOBIN 3.8 % (0.0-5.0); BG FRACTION INSPIRED OXYGEN 45; BG HCO3 ACT 29.5 mmol/L (22.0-26.0); BG METHEMOGLOBIN 0.1 % (0.0-1.5); BG OXYGEN SATURATION 96.2 % (92.0-98.5); BG OXYHEMOGLOBIN 95.8 % (94.0-97.0); BG PCO2 41.3 mmHg (35.0-45.0); BG PEEP (cmH2O) 0 cmH2O; BG PH 7.471 (7.350-7.450); BG PO2 83.4 mmHg (75.0-100.0); BG SAMPLE SITE LEFT RADIAL; BG TOTAL HEMOGLOBIN 10.4 g/dL (12.0-18.0); BG VENT MODE VENT - AC
[2021-09-16] VITALS (94 sets, daily range): BP systolic 106–160; BP diastolic 50–92
[2021-09-16] MEDS: INSULIN LISPRO 100 UNITS/ML SUBCUT SCH ×4 (00:28→18:41)
[2021-09-16] MEDS: BLOOD SUGAR DIAGNOSTIC STRIP TEST SCH ×4 (00:28→17:46)
[2021-09-16] MEDS: IPRATROPIUM/ALBUTEROL 0.5-3(2.5)MG/3ML NEB HHN SCH ×6 (00:58→21:19)
[2021-09-16] MEDS: PROPOFOL 10MG/ML 100ML 100 ML IV PRN ×3 (06:02→18:53)
[2021-09-16] MEDS: NYSTATIN POWDER 15GM TOP SCH ×3 (06:03→21:19)
[2021-09-16] MEDS: CEFEPIME 1,000 MG in DEXTROSE 5% WATER 50 ML IV SCH ×2 (06:03→18:39)
[2021-09-16] MEDS: METHYLPREDNISOLONE SOD SUCC 125 MG/2 ML VIAL IV SCH ×2 (06:03→13:14)
[2021-09-16 06:09] LABS: HEMATOCRIT. 25.9 % (42.0-52.0); HEMOGLOBIN. 8.5 g/dL (14.0-18.0); MEAN CORPUSCULAR HEMOGLOBIN 29.5 pg (28.0-32.0); MEAN CORPUSCULAR VOLUME 90.1 fL (80.0-94.0); MEAN PLATELET VOLUME 10.2 fl (7.4-10.4); PLATELET 278 x1000/uL (130-400); RED BLOOD CELL COUNT 2.88 mill/uL (4.7-6.1); RED CELL DISTRIBUTION WIDTH 15.6 % (11.6-14.6)
[2021-09-16 06:15] LABS: INR 1.1; PARTIAL THROMBOPLASTIN TIME 28.9 sec (23.4-31.0); PROTHROMBIN TIME 11.4 sec (9.6-11.0)
[2021-09-16 08:59] LABS: BG BASE EXCESS -0.4 mmol/L (-2.0-2.0); BG CARBOXYHEMOGLOBIN 0.3 % (0.5-1.5); BG DEOXYHEMOGLOBIN 2.3 % (0.0-5.0); BG FRACTION INSPIRED OXYGEN 45; BG HCO3 ACT 23.6 mmol/L (22.0-26.0); BG METHEMOGLOBIN 0.3 % (0.0-1.5); BG OXYGEN SATURATION 97.7 % (92.0-98.5); BG OXYHEMOGLOBIN 97.1 % (94.0-97.0); BG PCO2 35.9 mmHg (35.0-45.0); BG PH 7.435 (7.350-7.450); BG PO2 106.6 mmHg (75.0-100.0); BG SAMPLE SITE RIGHT RADIAL; BG TOTAL HEMOGLOBIN 9.1 g/dL (12.0-18.0); BG TOTAL RESPIRATORY RATE 28 b/min; BG VENT MODE VENT - AC
[2021-09-16] MEDS: PANTOPRAZOLE SODIUM 40 MG/VIAL IV SCH ×2 (09:17→21:19)
[2021-09-16] MEDS: MIDODRINE HCL 5MG TABLET PO SCH ×3 (09:17→18:39)
[2021-09-16 10:08] LABS: PLATELET ESTIMATE NORMAL
[2021-09-16] MEDS ORDERED: VANCOMYCIN 1 G PREMIX 200 ML IV SCH (13:00)
[2021-09-16] MEDS ORDERED: PROPOFOL 10MG/ML 100ML 100 ML IV PRN (19:30)
[2021-09-17] VITALS (87 sets, daily range): BP systolic 102–175; BP diastolic 47–143
[2021-09-17] MEDS: INSULIN LISPRO 100 UNITS/ML SUBCUT SCH ×5 (00:41→23:33)
[2021-09-17] MEDS: BLOOD SUGAR DIAGNOSTIC STRIP TEST SCH ×5 (00:42→23:19)
[2021-09-17] MEDS: IPRATROPIUM/ALBUTEROL 0.5-3(2.5)MG/3ML NEB HHN SCH ×6 (00:55→20:31)
[2021-09-17] MEDS: NYSTATIN POWDER 15GM TOP SCH ×3 (05:56→23:32)
[2021-09-17] MEDS: VANCOMYCIN 1 G PREMIX 200 ML IV SCH ×2 (05:56→23:32)
[2021-09-17] MEDS: CEFEPIME 1,000 MG in DEXTROSE 5% WATER 50 ML IV SCH ×2 (05:57→17:04)
[2021-09-17 06:00] LABS: HEMATOCRIT. 26.2 % (42.0-52.0); HEMOGLOBIN. 8.5 g/dL (14.0-18.0); MEAN CORPUSCULAR HEMOGLOBIN 29.4 pg (28.0-32.0); MEAN CORPUSCULAR VOLUME 91.2 fL (80.0-94.0); RED BLOOD CELL COUNT 2.87 mill/uL (4.7-6.1); RED CELL DISTRIBUTION WIDTH 15.5 % (11.6-14.6)
[2021-09-17] MEDS ORDERED: LIDOCAINE HCL 1% 20ML VIAL (Pyxis) INJ ONE (06:38)
[2021-09-17] MEDS ORDERED: POLYMYXIN B SULFATE 500000 UNITS/VIAL ONE (06:39)
[2021-09-17] MEDS ORDERED: BUPIVACAINE HCL/PF 0.5% (5MG/ML) 10ML ONE (06:39)
[2021-09-17] MEDS ORDERED: FENTANYL CITRATE/PF 50MCG/ML 2ML VIAL ONE (07:25)
[2021-09-17] MEDS ORDERED: ROCURONIUM BROMIDE 10MG/ML VIAL 5ML IV ONE ×2 (07:26→08:10)
[2021-09-17] MEDS ORDERED: MIDAZOLAM HCL 2 MG/2 ML VIAL ONE (07:26)
[2021-09-17] MEDS: MIDODRINE HCL 5MG TABLET PO SCH ×3 (09:37→17:04)
[2021-09-17] MEDS: ACETAMINOPHEN 650MG/20.3ML UDC PO SCH ×4 (09:37→20:46)
[2021-09-17] MEDS: PANTOPRAZOLE SODIUM 40 MG/VIAL IV SCH ×2 (09:37→20:46)
[2021-09-17] MEDS: MORPHINE SULFATE 2 MG/ML CPJ (NOT FOR IM USE) IV PRN ×2 (09:59→15:14)
[2021-09-17] MEDS: LORAZEPAM 2MG/ML CPJ IV PRN ×2 (11:09→17:11)
[2021-09-17 14:28] LABS: PLATELET ESTIMATE NORMAL
[2021-09-17 14:29] LABS: MEAN PLATELET VOLUME 10.2 fl (7.4-10.4); PLATELET 294 x1000/uL (130-400)
[2021-09-18] VITALS (73 sets, daily range): BP systolic 117–164; BP diastolic 52–109
[2021-09-18] MEDS: MORPHINE SULFATE 2 MG/ML CPJ (NOT FOR IM USE) IV PRN ×4 (00:33→16:33)
[2021-09-18] MEDS: IPRATROPIUM/ALBUTEROL 0.5-3(2.5)MG/3ML NEB HHN SCH ×6 (00:40→20:52)
[2021-09-18] MEDS: ACETAMINOPHEN 650MG/20.3ML UDC PO SCH ×3 (03:35→15:00)
[2021-09-18] MEDS: LORAZEPAM 2MG/ML CPJ IV PRN ×5 (03:55→22:42)
[2021-09-18] MEDS: BLOOD SUGAR DIAGNOSTIC STRIP TEST SCH ×3 (05:20→18:29)
[2021-09-18] MEDS: CEFEPIME 1,000 MG in DEXTROSE 5% WATER 50 ML IV SCH ×2 (05:46→18:29)
[2021-09-18] MEDS: NYSTATIN POWDER 15GM TOP SCH ×3 (05:47→20:30)
[2021-09-18] MEDS: INSULIN LISPRO 100 UNITS/ML SUBCUT SCH ×4 (05:47→23:57)
[2021-09-18 06:07] LABS: HEMATOCRIT. 28.2 % (42.0-52.0); HEMOGLOBIN. 9.1 g/dL (14.0-18.0); MEAN CORPUSCULAR HEMOGLOBIN 28.7 pg (28.0-32.0); MEAN CORPUSCULAR VOLUME 88.9 fL (80.0-94.0); MEAN PLATELET VOLUME 9.6 fl (7.4-10.4); PLATELET 284 x1000/uL (130-400); RED BLOOD CELL COUNT 3.17 mill/uL (4.7-6.1); RED CELL DISTRIBUTION WIDTH 15.2 % (11.6-14.6)
[2021-09-18] MEDS: PANTOPRAZOLE SODIUM 40 MG/VIAL IV SCH ×2 (08:52→20:30)
[2021-09-18] MEDS: MIDODRINE HCL 5MG TABLET PO SCH ×3 (08:52→18:29)
[2021-09-18 17:15] LABS: PLATELET ESTIMATE NORMAL
[2021-09-18] MEDS: ACETAMINOPHEN 650MG/20.3ML UDC GT PRN (20:30)
[2021-09-19] VITALS (12 sets, daily range): BP systolic 113–144; BP diastolic 50–88
[2021-09-19] MEDS: IPRATROPIUM/ALBUTEROL 0.5-3(2.5)MG/3ML NEB HHN SCH ×6 (01:03→20:22)
[2021-09-19] MEDS: BLOOD SUGAR DIAGNOSTIC STRIP TEST SCH ×4 (06:00→18:30)
[2021-09-19] MEDS: INSULIN LISPRO 100 UNITS/ML SUBCUT SCH ×3 (06:00→18:31)
[2021-09-19] MEDS: NYSTATIN POWDER 15GM TOP SCH ×3 (06:39→21:16)
[2021-09-19] MEDS: ACETAMINOPHEN 650MG/20.3ML UDC PO SCH ×2 (06:50→08:40)
[2021-09-19 07:19] LABS: HEMATOCRIT. 24.7 % (42.0-52.0); HEMOGLOBIN. 8.3 g/dL (14.0-18.0); MEAN CORPUSCULAR HEMOGLOBIN 29.6 pg (28.0-32.0); MEAN CORPUSCULAR VOLUME 88.4 fL (80.0-94.0); MEAN PLATELET VOLUME 9.6 fl (7.4-10.4); PLATELET 225 x1000/uL (130-400); RED BLOOD CELL COUNT 2.79 mill/uL (4.7-6.1); RED CELL DISTRIBUTION WIDTH 15.3 % (11.6-14.6)
[2021-09-19] MEDS: PANTOPRAZOLE SODIUM 40 MG/VIAL IV SCH ×2 (08:41→21:16)
[2021-09-19] MEDS: MIDODRINE HCL 5MG TABLET PO SCH ×3 (09:00→16:52)
[2021-09-19] MEDS ORDERED: LORAZEPAM 2MG/ML CPJ IV PRN (10:15)
[2021-09-19] MEDS ORDERED: QUETIAPINE FUMARATE 25MG TABLET PO SCH (10:15)
[2021-09-19 12:10] LABS: PLATELET ESTIMATE NORMAL
[2021-09-19] MEDS: LORAZEPAM 2MG/ML CPJ IV PRN (18:31)
[2021-09-19] MEDS: QUETIAPINE FUMARATE 25MG TABLET PO SCH (19:52)
[2021-09-19] MEDS: ACETAMINOPHEN 650MG/20.3ML UDC GT PRN (21:17)
[2021-09-20] VITALS (11 sets, daily range): BP systolic 126–182; BP diastolic 39–94
[2021-09-20] MEDS: IPRATROPIUM/ALBUTEROL 0.5-3(2.5)MG/3ML NEB HHN SCH ×6 (03:44→20:21)
[2021-09-20] MEDS: BLOOD SUGAR DIAGNOSTIC STRIP TEST SCH ×5 (05:45→23:37)
[2021-09-20] MEDS: INSULIN LISPRO 100 UNITS/ML SUBCUT SCH ×5 (05:48→23:37)
[2021-09-20] MEDS: NYSTATIN POWDER 15GM TOP SCH ×3 (05:49→21:12)
[2021-09-20] MEDS: LORAZEPAM 2MG/ML CPJ IV PRN ×2 (07:45→23:39)
[2021-09-20 08:24] LABS: HEMATOCRIT. 25.8 % (42.0-52.0); HEMOGLOBIN. 8.6 g/dL (14.0-18.0); MEAN CORPUSCULAR HEMOGLOBIN 29.2 pg (28.0-32.0); MEAN CORPUSCULAR VOLUME 87.8 fL (80.0-94.0); PLATELET 236 x1000/uL (130-400); RED BLOOD CELL COUNT 2.94 mill/uL (4.7-6.1); RED CELL DISTRIBUTION WIDTH 15.2 % (11.6-14.6)
[2021-09-20] MEDS: QUETIAPINE FUMARATE 25MG TABLET PO SCH ×2 (08:45→18:26)
[2021-09-20] MEDS: PANTOPRAZOLE SODIUM 40 MG/VIAL IV SCH ×2 (08:45→21:10)
[2021-09-20] MEDS: MIDODRINE HCL 5MG TABLET PO SCH ×3 (09:00→17:00)
[2021-09-20] MEDS: ACETAMINOPHEN 650MG/20.3ML UDC GT PRN (10:20)
[2021-09-20 11:15] LABS: PLATELET ESTIMATE NORMAL
[2021-09-21] VITALS (13 sets, daily range): BP systolic 120–180; BP diastolic 57–100
[2021-09-21] MEDS: IPRATROPIUM/ALBUTEROL 0.5-3(2.5)MG/3ML NEB HHN SCH ×6 (00:10→20:22)
[2021-09-21] MEDS: INSULIN LISPRO 100 UNITS/ML SUBCUT SCH ×3 (06:00→23:52)
[2021-09-21] MEDS: BLOOD SUGAR DIAGNOSTIC STRIP TEST SCH ×3 (06:34→23:42)
[2021-09-21] MEDS: NYSTATIN POWDER 15GM TOP SCH ×3 (06:34→21:41)
[2021-09-21 07:10] LABS: CHLORIDE 112 mEq/L (98-107)
[2021-09-21 07:17] LABS: HEMATOCRIT. 26.6 % (42.0-52.0); HEMOGLOBIN. 8.8 g/dL (14.0-18.0); MEAN CORPUSCULAR HEMOGLOBIN 29.4 pg (28.0-32.0); MEAN CORPUSCULAR VOLUME 88.8 fL (80.0-94.0); MEAN PLATELET VOLUME 9.4 fl (7.4-10.4); PLATELET 217 x1000/uL (130-400); RED CELL DISTRIBUTION WIDTH 14.9 % (11.6-14.6)
[2021-09-21] MEDS: PANTOPRAZOLE SODIUM 40 MG/VIAL IV SCH ×2 (09:48→21:37)
[2021-09-21] MEDS: QUETIAPINE FUMARATE 25MG TABLET PO SCH ×2 (09:49→18:17)
[2021-09-21] MEDS: MIDODRINE HCL 5MG TABLET PO SCH ×3 (09:49→18:16)
[2021-09-21 12:41] LABS: PLATELET ESTIMATE NORMAL
[2021-09-22] VITALS (12 sets, daily range): BP systolic 109–172; BP diastolic 52–100
[2021-09-22] MEDS: IPRATROPIUM/ALBUTEROL 0.5-3(2.5)MG/3ML NEB HHN SCH ×3 (00:15→20:14)
[2021-09-22] MEDS: INSULIN LISPRO 100 UNITS/ML SUBCUT SCH ×4 (06:00→23:46)
[2021-09-22] MEDS: BLOOD SUGAR DIAGNOSTIC STRIP TEST SCH ×4 (06:00→23:31)
[2021-09-22] MEDS: NYSTATIN POWDER 15GM TOP SCH ×3 (06:45→21:22)
[2021-09-22 07:17] LABS: HEMATOCRIT. 25.8 % (42.0-52.0); HEMOGLOBIN. 8.4 g/dL (14.0-18.0); MEAN CORPUSCULAR HEMOGLOBIN 28.3 pg (28.0-32.0); MEAN PLATELET VOLUME 9.2 fl (7.4-10.4); PLATELET 249 x1000/uL (130-400); RED BLOOD CELL COUNT 2.97 mill/uL (4.7-6.1); RED CELL DISTRIBUTION WIDTH 15.2 % (11.6-14.6)
[2021-09-22] MEDS: MIDODRINE HCL 5MG TABLET PO SCH ×3 (08:15→17:57)
[2021-09-22] MEDS: QUETIAPINE FUMARATE 25MG TABLET PO SCH ×2 (08:15→17:56)
[2021-09-22] MEDS: PANTOPRAZOLE SODIUM 40 MG/VIAL IV SCH ×2 (08:15→21:22)
[2021-09-22 09:50] LABS: PLATELET ESTIMATE NORMAL
[2021-09-23] VITALS (12 sets, daily range): BP systolic 123–191; BP diastolic 53–88
[2021-09-23] MEDS: IPRATROPIUM/ALBUTEROL 0.5-3(2.5)MG/3ML NEB HHN SCH ×6 (00:36→20:32)
[2021-09-23] MEDS: BLOOD SUGAR DIAGNOSTIC STRIP TEST SCH ×4 (05:49→23:37)
[2021-09-23] MEDS: INSULIN LISPRO 100 UNITS/ML SUBCUT SCH ×4 (05:53→23:43)
[2021-09-23] MEDS: NYSTATIN POWDER 15GM TOP SCH ×3 (06:47→21:04)
[2021-09-23] MEDS: PANTOPRAZOLE SODIUM 40 MG/VIAL IV SCH ×2 (08:32→20:49)
[2021-09-23] MEDS: QUETIAPINE FUMARATE 25MG TABLET PO SCH ×2 (08:32→17:34)
[2021-09-23] MEDS: MIDODRINE HCL 5MG TABLET PO SCH ×3 (08:34→17:00)
[2021-09-23] MEDS ORDERED: POTASSIUM CHLORIDE 20MEQ/PACKET PO NR (10:00)
[2021-09-23] MEDS: DEXTROSE 5% WATER 1,000 ML IV SCH (10:24)
[2021-09-24] VITALS (12 sets, daily range): BP systolic 127–164; BP diastolic 54–87
[2021-09-24] MEDS: IPRATROPIUM/ALBUTEROL 0.5-3(2.5)MG/3ML NEB HHN SCH ×7 (00:22→23:58)
[2021-09-24] MEDS: NYSTATIN POWDER 15GM TOP SCH ×3 (05:18→21:12)
[2021-09-24] MEDS: INSULIN LISPRO 100 UNITS/ML SUBCUT SCH ×4 (05:19→23:55)
[2021-09-24] MEDS: BLOOD SUGAR DIAGNOSTIC STRIP TEST SCH ×4 (05:19→23:56)
[2021-09-24] MEDS: DEXTROSE 5% WATER 1,000 ML IV SCH (05:20)
[2021-09-24 06:25] LABS: HEMATOCRIT. 23.6 % (42.0-52.0); HEMOGLOBIN. 7.8 g/dL (14.0-18.0); MEAN CORPUSCULAR HEMOGLOBIN 29.2 pg (28.0-32.0); MEAN CORPUSCULAR VOLUME 88.3 fL (80.0-94.0); MEAN PLATELET VOLUME 9.4 fl (7.4-10.4); PLATELET 213 x1000/uL (130-400); RED BLOOD CELL COUNT 2.67 mill/uL (4.7-6.1); RED CELL DISTRIBUTION WIDTH 15.2 % (11.6-14.6)
[2021-09-24 08:51] LABS: CHLORIDE 107 mEq/L (98-107)
[2021-09-24 08:59] LABS: PHOSPHORUS 2.3 mg/dL (2.5-4.9)
[2021-09-24] MEDS: MIDODRINE HCL 5MG TABLET PO SCH ×3 (09:00→17:00)
[2021-09-24] MEDS: PANTOPRAZOLE SODIUM 40 MG/VIAL IV SCH ×2 (09:01→21:13)
[2021-09-24] MEDS: QUETIAPINE FUMARATE 25MG TABLET PO SCH ×2 (09:01→17:37)
[2021-09-24] MEDS: ACETAMINOPHEN 650MG/20.3ML UDC GT PRN (10:14)
[2021-09-24 10:19] LABS: PLATELET ESTIMATE NORMAL
[2021-09-24] MEDS: MIRTAZAPINE 15MG TABLET PO SCH (23:52)
[2021-09-24] MEDS: QUETIAPINE FUMARATE 50MG TABLET PO SCH (23:53)
[2021-09-25] VITALS (12 sets, daily range): BP systolic 125–159; BP diastolic 46–98
[2021-09-25] MEDS: DEXTROSE 5% WATER 1,000 ML IV SCH ×2 (03:12→21:19)
[2021-09-25] MEDS: IPRATROPIUM/ALBUTEROL 0.5-3(2.5)MG/3ML NEB HHN SCH ×5 (04:15→20:14)
[2021-09-25] MEDS: BLOOD SUGAR DIAGNOSTIC STRIP TEST SCH ×4 (05:11→23:14)
[2021-09-25] MEDS: INSULIN LISPRO 100 UNITS/ML SUBCUT SCH ×4 (05:11→23:14)
[2021-09-25] MEDS: NYSTATIN POWDER 15GM TOP SCH ×3 (05:12→21:19)
[2021-09-25] MEDS: PANTOPRAZOLE SODIUM 40 MG/VIAL IV SCH ×2 (08:52→21:18)
[2021-09-25] MEDS: QUETIAPINE FUMARATE 50MG TABLET PO SCH ×2 (08:52→18:07)
[2021-09-25] MEDS: MIDODRINE HCL 5MG TABLET PO SCH ×3 (08:53→17:00)
[2021-09-25] MEDS ORDERED: QUETIAPINE FUMARATE 25MG TABLET PO SCH (09:00)
[2021-09-25] MEDS: MIRTAZAPINE 15MG TABLET PO SCH (21:18)
[2021-09-26] VITALS (12 sets, daily range): BP systolic 76–167; BP diastolic 30–83
[2021-09-26] MEDS: IPRATROPIUM/ALBUTEROL 0.5-3(2.5)MG/3ML NEB HHN SCH ×6 (00:25→20:58)
[2021-09-26] MEDS: NYSTATIN POWDER 15GM TOP SCH ×3 (05:35→20:13)
[2021-09-26] MEDS: INSULIN LISPRO 100 UNITS/ML SUBCUT SCH ×4 (05:35→23:17)
[2021-09-26] MEDS: BLOOD SUGAR DIAGNOSTIC STRIP TEST SCH ×4 (05:35→23:17)
[2021-09-26] MEDS: PANTOPRAZOLE SODIUM 40 MG/VIAL IV SCH ×2 (08:50→20:13)
[2021-09-26] MEDS: QUETIAPINE FUMARATE 50MG TABLET PO SCH ×2 (08:50→17:47)
[2021-09-26] MEDS: MIDODRINE HCL 5MG TABLET PO SCH ×3 (08:50→17:47)
[2021-09-26 13:12] LABS: HEMATOCRIT 22.3 % (42.0-52.0); HEMOGLOBIN 7.3 g/dL (14.0-18.0)
[2021-09-26] MEDS: DEXTROSE 5% WATER 1,000 ML IV SCH (17:47)
[2021-09-26] MEDS: MIRTAZAPINE 15MG TABLET PO SCH (20:16)
[2021-09-27] VITALS (15 sets, daily range): BP systolic 117–166; BP diastolic 67–93
[2021-09-27] MEDS: IPRATROPIUM/ALBUTEROL 0.5-3(2.5)MG/3ML NEB HHN SCH ×5 (00:56→16:49)
[2021-09-27] MEDS: BLOOD SUGAR DIAGNOSTIC STRIP TEST SCH ×3 (05:30→18:02)
[2021-09-27] MEDS: NYSTATIN POWDER 15GM TOP SCH ×2 (05:30→15:01)
[2021-09-27] MEDS: INSULIN LISPRO 100 UNITS/ML SUBCUT SCH ×3 (05:35→18:00)
[2021-09-27 07:00] LABS: CHLORIDE 102 mEq/L (98-107)
[2021-09-27 07:02] LABS: HEMATOCRIT. 22.2 % (42.0-52.0); HEMOGLOBIN. 7.5 g/dL (14.0-18.0); MEAN CORPUSCULAR HEMOGLOBIN 29.1 pg (28.0-32.0); MEAN CORPUSCULAR VOLUME 86.7 fL (80.0-94.0); MEAN PLATELET VOLUME 9.7 fl (7.4-10.4); PLATELET 229 x1000/uL (130-400); RED BLOOD CELL COUNT 2.56 mill/uL (4.7-6.1); RED CELL DISTRIBUTION WIDTH 15.3 % (11.6-14.6)
[2021-09-27 07:07] LABS: PHOSPHORUS 2.8 mg/dL (2.5-4.9)
[2021-09-27] MEDS: MIDODRINE HCL 5MG TABLET PO SCH ×3 (09:00→17:00)
[2021-09-27] MEDS: QUETIAPINE FUMARATE 50MG TABLET PO SCH ×2 (09:24→18:01)
[2021-09-27] MEDS: PANTOPRAZOLE SODIUM 40 MG/VIAL IV SCH (09:24)
[2021-09-27 10:18] LABS: PLATELET ESTIMATE NORMAL
[2021-09-27] MEDS ORDERED: LIDOCAINE HCL 1% 20ML VIAL (Pyxis) INJ ONE (11:18)
[2021-09-27] MEDS ORDERED: IODIXANOL 320MG/ML 100 ML BOTTLE IV ONE (11:18)
[2021-09-27] MEDS ORDERED: HEPARIN 1,000 UNITS PREMIX 0 ML IV ONE (11:18)
[2021-09-27] MEDS ORDERED: ASPIRIN/SOD BICARB/CITRIC ACID 324MG TAB EFF ONE (11:18)
[2021-09-27] MEDS ORDERED: FENTANYL CITRATE/PF 50MCG/ML 2ML VIAL ONE (11:38)
[2021-09-27] MEDS ORDERED: MIDAZOLAM HCL 2 MG/2 ML VIAL ONE (11:38)
[2021-09-27] MEDS ORDERED: LORAZEPAM 2MG/ML CPJ IV NR (14:00)
== END 2021-09-27 19:00 | DRG 4 ==
LOC: ER 00:19 → MICUSO 02:18 → EDBEDREQ 02:25 → EDBEDREQTM 02:25 → MICUSO 09:25 → 5EST 09-19 01:00
PROVIDERS: ADMIT Internal Medicine; ATTEND Internal Medicine
PROC: 5A1955Z Respiratory Ventilation, Greater than 96 Consecutive Hours (ICD-10-PCS; principal; 2021-09-03)
PROC: 0BH17EZ Insertion of Endotracheal Airway into Trachea, Via Natural or Artificial Opening (ICD-10-PCS; 2021-09-03)
PROC: B54BZZA Ultrasonography of Right Lower Extremity Veins, Guidance (ICD-10-PCS; 2021-09-03)
PROC: 06HY33Z Insertion of Infusion Device into Lower Vein, Percutaneous Approach (ICD-10-PCS; 2021-09-03)
PROC: 06H03DZ Insertion of Intraluminal Device into Inferior Vena Cava, Percutaneous Approach (ICD-10-PCS; 2021-09-06)
PROC: B5191ZZ Fluoroscopy of Inferior Vena Cava using Low Osmolar Contrast (ICD-10-PCS; 2021-09-06)
PROC: B549ZZA Ultrasonography of Inferior Vena Cava, Guidance (ICD-10-PCS; 2021-09-06)
PROC: 30233N1 Transfusion of Nonautologous Red Blood Cells into Peripheral Vein, Percutaneous Approach (ICD-10-PCS; 2021-09-13)
PROC: 02HV33Z Insertion of Infusion Device into Superior Vena Cava, Percutaneous Approach (ICD-10-PCS; 2021-09-14)
PROC: B548ZZA Ultrasonography of Superior Vena Cava, Guidance (ICD-10-PCS; 2021-09-14)
PROC: 0B110F4 Bypass Trachea to Cutaneous with Tracheostomy Device, Open Approach (ICD-10-PCS; 2021-09-17)
DX: A41.59 Other Gram-negative sepsis (principal); N17.0 Acute kidney failure with tubular necrosis; J18.9 Pneumonia, unspecified organism; R57.1 Hypovolemic shock; R65.21 Severe sepsis with septic shock; K21.01 Gastro-esophageal reflux disease with esophagitis, with bleeding; J96.01 Acute respiratory failure with hypoxia; K29.61 Other gastritis with bleeding; K27.4 Chronic or unspecified peptic ulcer, site unspecified, with hemorrhage; E87.0 Hyperosmolality and hypernatremia; I82.422 Acute embolism and thrombosis of left iliac vein; G93.40 Encephalopathy, unspecified; I82.412 Acute embolism and thrombosis of left femoral vein; I82.432 Acute embolism and thrombosis of left popliteal vein; N13.30 Unspecified hydronephrosis; Z99.11 Dependence on respirator [ventilator] status; E11.65 Type 2 diabetes mellitus with hyperglycemia; Z20.822 Contact with and (suspected) exposure to COVID-19; N40.0 Benign prostatic hyperplasia without lower urinary tract symptoms; E87.6 Hypokalemia; D50.0 Iron deficiency anemia secondary to blood loss (chronic); I10 Essential (primary) hypertension; Z87.891 Personal history of nicotine dependence; Z93.1 Gastrostomy status
CPT/HCPCS: 36415; 36573; 36600; 37191; 71045; 74018; 76770; 80048; 80053; 80076; 80202; 81003; 82248; 82270; 82375; 82550; 82607; 82728; 82746; 82805; 82962; 83036; 83540; 83550; 83605; 83735; 83880; 84100; 84145; 84478; 84484; 85014; 85018; 85025; 85044; 86850; 86900; 86920; 87070; 87077; 87106; 87186; 87426; 93005; 93970; 94002; 94003; 94640; 99291; A6261; C1725; C1769; C1880; C9113; J0692; J0696; J1644; J1815; J2060; J2250; J2270; J2354; J2370; J2405; J2543; J2704; J2930; J3010; J3370; J3480; J3490; J7030; J7040; J7050; J7060; J7070; P9016; Q9963; Q9967; U0003; U0005; A4315

== ENCOUNTER 2022-03-14 13:04 | Inpatient (IN) | payer MEDICARE, MEDICAID ==
[2022-03-14] VITALS (27 sets, daily range): BP systolic 92–145; BP diastolic 46–62
[~2022-03-14] VITALS: Ht 172.7 cm; Wt 73.0 kg
[2022-03-14] MEDS ORDERED: VANCOMYCIN 1G PREMIX 200 ML IV ONE (13:15)
[2022-03-14] MEDS ORDERED: PIPERACILLIN/TAZ 3.375G PREMIX 50 ML IV ONE (13:15)
[2022-03-14] MEDS ORDERED: SODIUM CHLORIDE 0.9% 1000ML BAG (SEPSIS BOLUS) IV ONE (13:15)
[2022-03-14 13:53] LABS: MEAN CORPUSCULAR HEMOGLOBIN 31.1 pg (28.0-32.0); MEAN CORPUSCULAR VOLUME 88.4 fL (80.0-94.0); MEAN PLATELET VOLUME 8.6 fl (7.4-10.4); PLATELET 197 x1000/uL (130-400); RED CELL DISTRIBUTION WIDTH 18.6 % (11.6-14.6)
[2022-03-14 14:00] LABS: HEMATOCRIT. 16.8 % (42.0-52.0); HEMOGLOBIN. 5.9 g/dL (14.0-18.0)
[2022-03-14 14:01] LABS: CHLORIDE 84 mEq/L (98-107)
[2022-03-14 14:07] LABS: NUCLEATED RED BLOOD CELLS 1 /100 WBC
[2022-03-14 14:08] LABS: PLATELET ESTIMATE NORMAL
[2022-03-14] MEDS ORDERED: NOREPINEPHRINE 32 MG in DEXT 5% WATER 218 ML IV PRN (15:00)
[2022-03-14 15:18] LABS: BG BASE EXCESS -5.1 mmol/L (-2.0-2.0); BG CARBOXYHEMOGLOBIN 0.9 % (0.5-1.5); BG DEOXYHEMOGLOBIN 2.9 % (0.0-5.0); BG HCO3 ACT 20.9 mmol/L (22.0-26.0); BG METHEMOGLOBIN 0.4 % (0.0-1.5); BG OXYGEN SATURATION 97.1 % (92.0-98.5); BG OXYHEMOGLOBIN 95.8 % (94.0-97.0); BG PCO2 43.3 mmHg (35.0-45.0); BG PH 7.301 (7.350-7.450); BG PO2 102.5 mmHg (75.0-100.0); BG SAMPLE SITE RIGHT RADIAL; BG TOTAL HEMOGLOBIN 6.7 g/dL (12.0-18.0); BG VENT MODE VENT - AC
[2022-03-14 16:50] LABS: INR 1.2; PROTHROMBIN TIME 12.5 sec (9.6-11.0)
[2022-03-14] MEDS: NOREPINEPHRINE 32 MG in DEXT 5% WATER 218 ML IV PRN (17:00)
[2022-03-14 17:04] LABS: TOTAL IRON BINDING CAPACITY 287 ug/dL (250-450)
[2022-03-14 17:27] LABS: FOLIC ACID (FOLATE) SERUM 19.5 ng/mL (>5.38)
[2022-03-14 17:48] LABS: CLARITY URINE CLOUDY (CLEAR); COLOR URINE ORANGE (YELLOW); KETONES URINE NEGATIVE (NEGATIVE); LEUKOCYTE ESTERASE URINE 2+ (NEGATIVE); NITRITE URINE NEGATIVE (NEGATIVE); OCCULT BLOOD URINE 3+ (NEGATIVE); PROTEIN URINE 1+ (NEGATIVE); SPECIFIC GRAVITY URINE 1.014 (1.005-1.030); UROBILINOGEN URINE 0.2 E.U./dL (0.2-1.0)
[2022-03-14] MEDS ORDERED: LISI20TA31 MT (17:52)
[2022-03-14] MEDS ORDERED: QUET50TA MT (17:52)
[2022-03-14] MEDS ORDERED: AMLO10TA80 PO (17:52)
[2022-03-14] MEDS ORDERED: KEPPSOL MT (17:52)
[2022-03-14] MEDS ORDERED: DOCU-138 MT (17:52)
[2022-03-14] MEDS ORDERED: FERR325T6 MT (17:52)
[2022-03-14] MEDS ORDERED: HYDR-4134 MT (17:52)
[2022-03-14] MEDS ORDERED: VANCOMYCIN 1,500 MG in DEXT 5% WATER 250 ML IV NR (18:00)
[2022-03-14] MEDS: FAMOTIDINE 20MG/2ML VIAL IV SCH (21:36)
[2022-03-14] MEDS: PIPERACILLIN/TAZOBACTAM 3.375 G in DEXTROSE 5% WATER 50 ML IV SCH (21:36)
[2022-03-14] MEDS ORDERED: PIPERACILLIN/TAZOBACTAM 3.375 G in DEXTROSE 5% WATER 50 ML IV SCH (22:00)
[2022-03-14] MEDS: SODIUM CHLORIDE 0.9% 1,000 ML IV SCH (23:27)
[2022-03-14 23:38] LABS: HEMATOCRIT 28.1 % (42.0-52.0); HEMOGLOBIN 9.5 g/dL (14.0-18.0)
[2022-03-15] VITALS (63 sets, daily range): BP systolic 68–160; BP diastolic 37–88
[2022-03-15] MEDS: PIPERACILLIN/TAZOBACTAM 3.375 G in DEXTROSE 5% WATER 50 ML IV SCH ×3 (05:49→21:31)
[2022-03-15] MEDS: VANCOMYCIN 750 MG in DEXT 5% WATER 250 ML IV SCH ×2 (05:50→18:26)
[2022-03-15] MEDS: SODIUM CHLORIDE 0.9% 1,000 ML IV SCH (06:20)
[2022-03-15 06:44] LABS: HEMATOCRIT. 23.8 % (42.0-52.0); HEMOGLOBIN. 8.2 g/dL (14.0-18.0); MEAN CORPUSCULAR HEMOGLOBIN 28.6 pg (28.0-32.0); MEAN CORPUSCULAR VOLUME 82.9 fL (80.0-94.0); MEAN PLATELET VOLUME 8.2 fl (7.4-10.4); PLATELET 183 x1000/uL (130-400); RED BLOOD CELL COUNT 2.87 mill/uL (4.7-6.1); RED CELL DISTRIBUTION WIDTH 17.3 % (11.6-14.6)
[2022-03-15 06:51] LABS: CHLORIDE 96 mEq/L (98-107)
[2022-03-15 07:08] LABS: PHOSPHORUS 2.4 mg/dL (2.5-4.9)
[2022-03-15 08:49] LABS: PLATELET ESTIMATE NORMAL
[2022-03-15] MEDS: FAMOTIDINE 20MG/2ML VIAL IV SCH ×2 (09:43→21:32)
[2022-03-15] MEDS: DEXTROSE 5% WATER 1,000 ML IV SCH ×2 (10:00→23:18)
[2022-03-15] MEDS ORDERED: POTASSIUM PHOS,M-BASIC-D-BASIC 20 MMOL in DEXT 5% WATER 243.3333 ML IV ONE (12:00)
[2022-03-15] MEDS: LEVOTHYROXINE SODIUM 100 MCG/ VIAL IV SCH (23:17)
[2022-03-16] VITALS (97 sets, daily range): BP systolic 75–162; BP diastolic 42–111
[2022-03-16 05:01] LABS: HEMATOCRIT. 24.2 % (42.0-52.0); HEMOGLOBIN. 8.3 g/dL (14.0-18.0); MEAN CORPUSCULAR HEMOGLOBIN 29.4 pg (28.0-32.0); MEAN CORPUSCULAR VOLUME 85.3 fL (80.0-94.0); MEAN PLATELET VOLUME 7.7 fl (7.4-10.4); PLATELET 185 x1000/uL (130-400); RED BLOOD CELL COUNT 2.83 mill/uL (4.7-6.1); RED CELL DISTRIBUTION WIDTH 17.5 % (11.6-14.6)
[2022-03-16] MEDS: PIPERACILLIN/TAZOBACTAM 3.375 G in DEXTROSE 5% WATER 50 ML IV SCH ×3 (05:04→21:54)
[2022-03-16] MEDS: VANCOMYCIN 750 MG in DEXT 5% WATER 250 ML IV SCH ×2 (05:04→18:02)
[2022-03-16 05:19] LABS: CHLORIDE 97 mEq/L (98-107); PHOSPHORUS 1.9 mg/dL (2.5-4.9); T4 FREE 0.55 ng/dL (0.76-1.46)
[2022-03-16 05:39] LABS: PLATELET ESTIMATE NORMAL
[2022-03-16] MEDS: FAMOTIDINE 20MG/2ML VIAL IV SCH ×2 (08:52→21:53)
[2022-03-16] MEDS: DEXT 5%/0.9% NACL 1,000 ML IV SCH ×2 (08:52→21:53)
[2022-03-16] MEDS ORDERED: POTASSIUM PHOS,M-BASIC-D-BASIC 30 MMOL in SODIUM CHLORIDE 0.9% 500 ML IV ONE (10:00)
[2022-03-16 10:26] LABS: BG BASE EXCESS -2.2 mmol/L (-2.0-2.0); BG CARBOXYHEMOGLOBIN 0.7 % (0.5-1.5); BG DEOXYHEMOGLOBIN 3.9 % (0.0-5.0); BG FRACTION INSPIRED OXYGEN 30; BG HCO3 ACT 21.1 mmol/L (22.0-26.0); BG METHEMOGLOBIN 0.1 % (0.0-1.5); BG OXYGEN SATURATION 96.1 % (92.0-98.5); BG OXYHEMOGLOBIN 95.3 % (94.0-97.0); BG PH 7.464 (7.350-7.450); BG PO2 76.3 mmHg (75.0-100.0); BG SAMPLE SITE RIGHT RADIAL; BG TOTAL HEMOGLOBIN 8.1 g/dL (12.0-18.0); BG VENT MODE VENT - AC
[2022-03-16] MEDS: NOREPINEPHRINE 32 MG in DEXT 5% WATER 218 ML IV PRN (18:05)
[2022-03-16] MEDS: LEVOTHYROXINE SODIUM 100 MCG/ VIAL IV SCH (21:54)
[2022-03-17] VITALS (79 sets, daily range): BP systolic 82–154; BP diastolic 34–85
[2022-03-17] MEDS: PIPERACILLIN/TAZOBACTAM 3.375 G in DEXTROSE 5% WATER 50 ML IV SCH ×3 (05:12→22:11)
[2022-03-17 05:31] LABS: BASOPHILS % 0.1 % (0.0-2.0); EOSINOPHILS % 0.4 % (0.0-5.0); HEMATOCRIT. 22.6 % (42.0-52.0); HEMOGLOBIN. 7.9 g/dL (14.0-18.0); LYMPHOCYTES % 9.8 % (20.0-50.0); MEAN CORPUSCULAR HEMOGLOBIN 30.2 pg (28.0-32.0); MEAN PLATELET VOLUME 7.6 fl (7.4-10.4); MONOCYTES % 6.7 % (2.0-8.0); PLATELET 149 x1000/uL (130-400); RED CELL DISTRIBUTION WIDTH 17.9 % (11.6-14.6)
[2022-03-17 05:50] LABS: CHLORIDE 101 mEq/L (98-107)
[2022-03-17 08:18] LABS: BG BASE EXCESS -0.5 mmol/L (-2.0-2.0); BG CARBOXYHEMOGLOBIN 0.9 % (0.5-1.5); BG DEOXYHEMOGLOBIN 6.4 % (0.0-5.0); BG FRACTION INSPIRED OXYGEN 30; BG HCO3 ACT 23.3 mmol/L (22.0-26.0); BG METHEMOGLOBIN 0.3 % (0.0-1.5); BG OXYGEN SATURATION 93.5 % (92.0-98.5); BG OXYHEMOGLOBIN 92.4 % (94.0-97.0); BG PCO2 34.2 mmHg (35.0-45.0); BG PH 7.451 (7.350-7.450); BG PO2 62.8 mmHg (75.0-100.0); BG SAMPLE SITE RIGHT RADIAL; BG TOTAL HEMOGLOBIN 7.6 g/dL (12.0-18.0); BG VENT MODE VENT - AC
[2022-03-17] MEDS: FAMOTIDINE 20MG/2ML VIAL IV SCH ×2 (08:36→21:00)
[2022-03-17] MEDS: DEXT 5%/0.9% NACL 1,000 ML IV SCH (11:14)
[2022-03-17] MEDS ORDERED: IPRATROPIUM/ALBUTEROL 0.5-3(2.5)MG/3ML NEB HHN PRN (15:00)
[2022-03-17] MEDS: IPRATROPIUM/ALBUTEROL 0.5-3(2.5)MG/3ML NEB HHN SCH (18:00)
[2022-03-17] MEDS: LEVOTHYROXINE SODIUM 100 MCG/ VIAL IV SCH (22:11)
[2022-03-18] VITALS (45 sets, daily range): BP systolic 90–169; BP diastolic 48–81
[2022-03-18] MEDS: DEXT 5%/0.9% NACL 1,000 ML IV SCH ×2 (00:35→14:03)
[2022-03-18 05:46] LABS: BASOPHILS % 0.1 % (0.0-2.0); EOSINOPHILS % 0.2 % (0.0-5.0); LYMPHOCYTES % 10.8 % (20.0-50.0); MEAN CORPUSCULAR HEMOGLOBIN 29.2 pg (28.0-32.0); MEAN CORPUSCULAR VOLUME 88.4 fL (80.0-94.0); MEAN PLATELET VOLUME 7.4 fl (7.4-10.4); NEUTROPHILS % 82.9 % (40.0-76.0); PLATELET 146 x1000/uL (130-400); RED BLOOD CELL COUNT 2.31 mill/uL (4.7-6.1)
[2022-03-18 05:59] LABS: CHLORIDE 105 mEq/L (98-107)
[2022-03-18] MEDS: PIPERACILLIN/TAZOBACTAM 3.375 G in DEXTROSE 5% WATER 50 ML IV SCH ×3 (06:31→21:45)
[2022-03-18 06:37] LABS: HEMATOCRIT. 20.5 % (42.0-52.0); HEMOGLOBIN. 6.8 g/dL (14.0-18.0)
[2022-03-18] MEDS: IPRATROPIUM/ALBUTEROL 0.5-3(2.5)MG/3ML NEB HHN SCH ×4 (07:42→20:39)
[2022-03-18 07:51] LABS: BG BASE EXCESS -2.2 mmol/L (-2.0-2.0); BG CARBOXYHEMOGLOBIN 0.3 % (0.5-1.5); BG DEOXYHEMOGLOBIN 2.2 % (0.0-5.0); BG HCO3 ACT 21.5 mmol/L (22.0-26.0); BG METHEMOGLOBIN 0.1 % (0.0-1.5); BG OXYGEN SATURATION 97.8 % (92.0-98.5); BG OXYHEMOGLOBIN 97.4 % (94.0-97.0); BG PCO2 32.3 mmHg (35.0-45.0); BG PH 7.442 (7.350-7.450); BG PO2 115.3 mmHg (75.0-100.0); BG SAMPLE SITE RIGHT RADIAL; BG TOTAL HEMOGLOBIN 7.2 g/dL (12.0-18.0); BG VENT MODE VENT - AC
[2022-03-18] MEDS ORDERED: POTASSIUM CHLORIDE 20MEQ/PACKET PO SCH (08:45)
[2022-03-18] MEDS: ZINC SULFATE 220 MG ( 50 ) CAPSULE PO SCH (08:55)
[2022-03-18] MEDS: ASCORBIC ACID 500 MG TABLET PO SCH (08:56)
[2022-03-18] MEDS: MULTIVITAMINS,THER W-MINERALS TABLET PO SCH (08:56)
[2022-03-18] MEDS: FAMOTIDINE 20MG/2ML VIAL IV SCH (14:03)
[2022-03-18] MEDS: PANTOPRAZOLE SODIUM 40 MG/VIAL IV SCH (21:45)
[2022-03-18] MEDS: LEVOTHYROXINE SODIUM 100 MCG/ VIAL IV SCH (23:58)
[2022-03-19] VITALS (54 sets, daily range): BP systolic 86–153; BP diastolic 41–93
[2022-03-19] MEDS: IPRATROPIUM/ALBUTEROL 0.5-3(2.5)MG/3ML NEB HHN SCH ×4 (01:28→19:53)
[2022-03-19 05:48] LABS: BASOPHILS % 0.1 % (0.0-2.0); EOSINOPHILS % 0.2 % (0.0-5.0); HEMATOCRIT. 24.9 % (42.0-52.0); HEMOGLOBIN. 8.4 g/dL (14.0-18.0); LYMPHOCYTES % 8.8 % (20.0-50.0); MEAN CORPUSCULAR HEMOGLOBIN 29.5 pg (28.0-32.0); MEAN CORPUSCULAR VOLUME 87.7 fL (80.0-94.0); MEAN PLATELET VOLUME 7.1 fl (7.4-10.4); NEUTROPHILS % 85.9 % (40.0-76.0); PLATELET 153 x1000/uL (130-400); RED BLOOD CELL COUNT 2.84 mill/uL (4.7-6.1); RED CELL DISTRIBUTION WIDTH 17.3 % (11.6-14.6)
[2022-03-19 05:59] LABS: CHLORIDE 105 mEq/L (98-107)
[2022-03-19 06:04] LABS: INR 1.1; PROTHROMBIN TIME 11.8 sec (9.6-11.0)
[2022-03-19] MEDS: PIPERACILLIN/TAZOBACTAM 3.375 G in DEXTROSE 5% WATER 50 ML IV SCH ×3 (06:36→21:57)
[2022-03-19] MEDS: DEXT 5%/0.9% NACL 1,000 ML IV SCH ×2 (06:37→17:01)
[2022-03-19] MEDS: ASCORBIC ACID 500 MG TABLET PO SCH (09:00)
[2022-03-19] MEDS: PANTOPRAZOLE SODIUM 40 MG/VIAL IV SCH ×2 (09:00→21:57)
[2022-03-19] MEDS: ZINC SULFATE 220 MG ( 50 ) CAPSULE PO SCH (09:00)
[2022-03-19] MEDS: MULTIVITAMINS,THER W-MINERALS TABLET PO SCH (09:00)
[2022-03-19] MEDS ORDERED: PROPOFOL 200MG/20ML VIAL IV ONE (15:35)
[2022-03-19] MEDS ORDERED: ROCURONIUM BROMIDE 10MG/ML VIAL 5ML IV ONE (15:36)
[2022-03-19] MEDS ORDERED: MIDAZOLAM HCL 2 MG/2 ML VIAL ONE (15:36)
[2022-03-19] MEDS ORDERED: FENTANYL CITRATE/PF 50MCG/ML 2ML VIAL ONE (15:36)
[2022-03-19] MEDS ORDERED: DOPAMINE 400MG/250ML PREMIX 250 ML IV PRN (19:15)
[2022-03-19] MEDS: LEVOTHYROXINE SODIUM 100 MCG/ VIAL IV SCH (21:57)
[2022-03-20] VITALS (91 sets, daily range): BP systolic 82–141; BP diastolic 57–112
[2022-03-20] MEDS: NOREPINEPHRINE 32 MG in DEXT 5% WATER 218 ML IV PRN ×2
[2022-03-20] MEDS: IPRATROPIUM/ALBUTEROL 0.5-3(2.5)MG/3ML NEB HHN SCH ×4 (01:21→20:12)
[2022-03-20] MEDS: DEXT 5%/0.9% NACL 1,000 ML IV SCH ×2 (06:01→18:02)
[2022-03-20] MEDS: ZINC SULFATE 220 MG ( 50 ) CAPSULE PO SCH (10:04)
[2022-03-20] MEDS: PANTOPRAZOLE SODIUM 40 MG/VIAL IV SCH ×2 (10:04→22:08)
[2022-03-20] MEDS: ASCORBIC ACID 500 MG TABLET PO SCH (10:04)
[2022-03-20] MEDS: MULTIVITAMINS,THER W-MINERALS TABLET PO SCH (10:04)
[2022-03-20 12:24] LABS: HEMOGLOBIN 8.5 g/dL (14.0-18.0); MEAN CORPUSCULAR HEMOGLOBIN 29.2 pg (28.0-32.0); MEAN CORPUSCULAR VOLUME 88.9 fL (80.0-94.0); PLATELET 255 x1000/uL (130-400); RED BLOOD CELL COUNT 2.93 mill/uL (4.7-6.1); RED CELL DISTRIBUTION WIDTH 17.6 % (11.6-14.6)
[2022-03-20 12:32] LABS: CHLORIDE 105 mEq/L (98-107)
[2022-03-20] MEDS: MIDODRINE HCL 5MG TABLET PO SCH ×2 (13:00→18:00)
[2022-03-21] VITALS (81 sets, daily range): BP systolic 68–131; BP diastolic 49–82
[2022-03-21] MEDS: IPRATROPIUM/ALBUTEROL 0.5-3(2.5)MG/3ML NEB HHN SCH ×4 (02:07→19:46)
[2022-03-21 05:44] LABS: BASOPHILS % 0.1 % (0.0-2.0); EOSINOPHILS % 0.1 % (0.0-5.0); HEMATOCRIT. 24.1 % (42.0-52.0); HEMOGLOBIN. 7.9 g/dL (14.0-18.0); LYMPHOCYTES % 7.3 % (20.0-50.0); MEAN CORPUSCULAR HEMOGLOBIN 29.1 pg (28.0-32.0); MEAN CORPUSCULAR VOLUME 88.9 fL (80.0-94.0); MEAN PLATELET VOLUME 7.4 fl (7.4-10.4); MONOCYTES % 4.6 % (2.0-8.0); NEUTROPHILS % 87.9 % (40.0-76.0); PLATELET 236 x1000/uL (130-400); RED BLOOD CELL COUNT 2.71 mill/uL (4.7-6.1); RED CELL DISTRIBUTION WIDTH 17.9 % (11.6-14.6)
[2022-03-21 06:02] LABS: CHLORIDE 108 mEq/L (98-107)
[2022-03-21 06:12] LABS: T4 FREE 0.68 ng/dL (0.76-1.46)
[2022-03-21] MEDS ORDERED: POTASSIUM CHLORIDE 20MEQ/PACKET PO NR (08:00)
[2022-03-21] MEDS: DEXT 5%/0.9% NACL 1,000 ML IV SCH ×2 (08:40→21:36)
[2022-03-21] MEDS: PANTOPRAZOLE SODIUM 40 MG/VIAL IV SCH ×2 (08:40→21:36)
[2022-03-21] MEDS: ZINC SULFATE 220 MG ( 50 ) CAPSULE PO SCH (08:40)
[2022-03-21] MEDS: ASCORBIC ACID 500 MG TABLET PO SCH (08:40)
[2022-03-21] MEDS: MULTIVITAMINS,THER W-MINERALS TABLET PO SCH (08:40)
[2022-03-21] MEDS: MIDODRINE HCL 5MG TABLET PO SCH ×3 (08:41→18:02)
[2022-03-21] MEDS: LEVOTHYROXINE SODIUM 100 MCG/ VIAL IV SCH (08:43)
[2022-03-21] MEDS ORDERED: LEVOFLOXACIN 500MG PREMIX 100 ML IV SCH (11:00)
[2022-03-21] MEDS ORDERED: DEXTROSE 50% WATER 50ML SYRINGE IV PRN (12:30)
[2022-03-21] MEDS: BLOOD SUGAR DIAGNOSTIC STRIP TEST SCH ×2 (12:42→17:57)
[2022-03-21] MEDS: INSULIN LISPRO 100 UNITS/ML SUBCUT SCH ×2 (13:14→18:02)
[2022-03-22] VITALS (37 sets, daily range): BP systolic 100–125; BP diastolic 53–79
[2022-03-22] MEDS: BLOOD SUGAR DIAGNOSTIC STRIP TEST SCH ×4 (00:30→18:35)
[2022-03-22] MEDS: INSULIN LISPRO 100 UNITS/ML SUBCUT SCH ×4 (06:00→18:00)
[2022-03-22 07:22] LABS: BASOPHILS % 0.1 % (0.0-2.0); EOSINOPHILS % 0.5 % (0.0-5.0); HEMATOCRIT. 22.2 % (42.0-52.0); HEMOGLOBIN. 7.4 g/dL (14.0-18.0); LYMPHOCYTES % 9.7 % (20.0-50.0); MEAN CORPUSCULAR HEMOGLOBIN 29.2 pg (28.0-32.0); MEAN CORPUSCULAR VOLUME 87.4 fL (80.0-94.0); MEAN PLATELET VOLUME 7.8 fl (7.4-10.4); MONOCYTES % 3.8 % (2.0-8.0); NEUTROPHILS % 85.9 % (40.0-76.0); PLATELET 169 x1000/uL (130-400); RED BLOOD CELL COUNT 2.54 mill/uL (4.7-6.1); RED CELL DISTRIBUTION WIDTH 18.1 % (11.6-14.6)
[2022-03-22 07:32] LABS: CHLORIDE 111 mEq/L (98-107)
[2022-03-22] MEDS: ZINC SULFATE 220 MG ( 50 ) CAPSULE PO SCH (08:12)
[2022-03-22] MEDS: MULTIVITAMINS,THER W-MINERALS TABLET PO SCH (08:12)
[2022-03-22] MEDS: MIDODRINE HCL 5MG TABLET PO SCH ×3 (08:12→17:00)
[2022-03-22] MEDS: PANTOPRAZOLE SODIUM 40 MG/VIAL IV SCH ×2 (08:12→21:01)
[2022-03-22] MEDS: ASCORBIC ACID 500 MG TABLET PO SCH (08:12)
[2022-03-22] MEDS: LEVOTHYROXINE SODIUM 100 MCG/ VIAL IV SCH (08:13)
[2022-03-22] MEDS: IPRATROPIUM/ALBUTEROL 0.5-3(2.5)MG/3ML NEB HHN SCH ×3 (09:45→21:13)
[2022-03-22] MEDS: DEXT 5%/0.9% NACL 1,000 ML IV SCH (10:48)
[2022-03-23] VITALS (12 sets, daily range): BP systolic 105–120; BP diastolic 60–76
[2022-03-23] MEDS: BLOOD SUGAR DIAGNOSTIC STRIP TEST SCH ×4 (00:51→17:04)
[2022-03-23] MEDS: DEXT 5%/0.9% NACL 1,000 ML IV SCH ×2 (00:52→13:42)
[2022-03-23] MEDS: IPRATROPIUM/ALBUTEROL 0.5-3(2.5)MG/3ML NEB HHN SCH ×4 (02:23→20:46)
[2022-03-23] MEDS: INSULIN LISPRO 100 UNITS/ML SUBCUT SCH ×4 (06:00→17:04)
[2022-03-23 06:52] LABS: BASOPHILS % 0.1 % (0.0-2.0); EOSINOPHILS % 0.1 % (0.0-5.0); HEMATOCRIT. 25.4 % (42.0-52.0); HEMOGLOBIN. 8.4 g/dL (14.0-18.0); LYMPHOCYTES % 7.6 % (20.0-50.0); MEAN CORPUSCULAR HEMOGLOBIN 29.5 pg (28.0-32.0); MEAN CORPUSCULAR VOLUME 89.3 fL (80.0-94.0); NEUTROPHILS % 89.2 % (40.0-76.0); PLATELET 184 x1000/uL (130-400); RED BLOOD CELL COUNT 2.84 mill/uL (4.7-6.1); RED CELL DISTRIBUTION WIDTH 17.1 % (11.6-14.6)
[2022-03-23 07:07] LABS: CHLORIDE 111 mEq/L (98-107)
[2022-03-23] MEDS: PANTOPRAZOLE SODIUM 40 MG/VIAL IV SCH ×2 (08:17→20:29)
[2022-03-23] MEDS: ZINC SULFATE 220 MG ( 50 ) CAPSULE PO SCH (08:17)
[2022-03-23] MEDS: MULTIVITAMINS,THER W-MINERALS TABLET PO SCH (08:17)
[2022-03-23] MEDS: ASCORBIC ACID 500 MG TABLET PO SCH (08:17)
[2022-03-23] MEDS: LEVOTHYROXINE SODIUM 100 MCG/ VIAL IV SCH (08:17)
[2022-03-23] MEDS: MIDODRINE HCL 5MG TABLET PO SCH ×4 (08:17→17:08)
[2022-03-23] MEDS: SUCRALFATE 1 G/10 ML UDC PO SCH ×2 (17:08→20:29)
[2022-03-24] VITALS (9 sets, daily range): BP systolic 109–134; BP diastolic 52–87
[2022-03-24] MEDS: IPRATROPIUM/ALBUTEROL 0.5-3(2.5)MG/3ML NEB HHN SCH ×2 (02:54→08:44)
[2022-03-24] MEDS: DEXT 5%/0.9% NACL 1,000 ML IV SCH (03:26)
[2022-03-24] MEDS: BLOOD SUGAR DIAGNOSTIC STRIP TEST SCH ×3 (05:13→12:00)
[2022-03-24] MEDS: INSULIN LISPRO 100 UNITS/ML SUBCUT SCH ×3 (05:14→12:00)
[2022-03-24 06:28] LABS: BASOPHILS % 0.2 % (0.0-2.0); EOSINOPHILS % 0.2 % (0.0-5.0); HEMATOCRIT. 25.8 % (42.0-52.0); HEMOGLOBIN. 8.5 g/dL (14.0-18.0); LYMPHOCYTES % 7.9 % (20.0-50.0); MEAN CORPUSCULAR HEMOGLOBIN 29.5 pg (28.0-32.0); MEAN CORPUSCULAR VOLUME 90.2 fL (80.0-94.0); MEAN PLATELET VOLUME 8.4 fl (7.4-10.4); NEUTROPHILS % 88.7 % (40.0-76.0); PLATELET 206 x1000/uL (130-400); RED BLOOD CELL COUNT 2.86 mill/uL (4.7-6.1); RED CELL DISTRIBUTION WIDTH 17.8 % (11.6-14.6)
[2022-03-24 07:34] LABS: CHLORIDE 111 mEq/L (98-107)
[2022-03-24] MEDS: MIDODRINE HCL 5MG TABLET PO SCH ×2 (10:48→14:20)
[2022-03-24] MEDS: PANTOPRAZOLE SODIUM 40 MG/VIAL IV SCH (10:48)
[2022-03-24] MEDS: SUCRALFATE 1 G/10 ML UDC PO SCH ×2 (10:48→14:20)
[2022-03-24] MEDS: ASCORBIC ACID 500 MG TABLET PO SCH (10:49)
[2022-03-24] MEDS: ZINC SULFATE 220 MG ( 50 ) CAPSULE PO SCH (10:49)
[2022-03-24] MEDS: MULTIVITAMINS,THER W-MINERALS TABLET PO SCH (10:49)
[2022-03-24] MEDS: LEVOTHYROXINE SODIUM 100 MCG/ VIAL IV SCH (10:50)
== END 2022-03-24 18:51 | DRG 870 ==
LOC: ER 13:54 → CVICU 14:34 → EDBEDREQ 14:50 → ENRESERV 15:25 → CVICU 17:00 → 5EST 03-22 17:02
PROVIDERS: ADMIT Internal Medicine; ATTEND Internal Medicine
PROC: 5A1955Z Respiratory Ventilation, Greater than 96 Consecutive Hours (ICD-10-PCS; principal; 2022-03-14)
PROC: 30233N1 Transfusion of Nonautologous Red Blood Cells into Peripheral Vein, Percutaneous Approach (ICD-10-PCS; 2022-03-14)
PROC: 02HV33Z Insertion of Infusion Device into Superior Vena Cava, Percutaneous Approach (ICD-10-PCS; 2022-03-14)
PROC: B548ZZA Ultrasonography of Superior Vena Cava, Guidance (ICD-10-PCS; 2022-03-14)
PROC: 0DB78ZX Excision of Stomach, Pylorus, Via Natural or Artificial Opening Endoscopic, Diagnostic (ICD-10-PCS; 2022-03-19)
DX: A41.52 Sepsis due to Pseudomonas (principal); E43 Unspecified severe protein-calorie malnutrition; N17.0 Acute kidney failure with tubular necrosis; R65.21 Severe sepsis with septic shock; R57.0 Cardiogenic shock; K22.11 Ulcer of esophagus with bleeding; K29.71 Gastritis, unspecified, with bleeding; J15.0 Pneumonia due to Klebsiella pneumoniae; I82.422 Acute embolism and thrombosis of left iliac vein; E87.1 Hypo-osmolality and hyponatremia; G93.40 Encephalopathy, unspecified; Z99.11 Dependence on respirator [ventilator] status; J44.0 Chronic obstructive pulmonary disease with (acute) lower respiratory infection; N13.6 Pyonephrosis; J96.10 Chronic respiratory failure, unspecified whether with hypoxia or hypercapnia; I31.3 Pericardial effusion (noninflammatory); A41.2 Sepsis due to unspecified staphylococcus; E86.0 Dehydration; N18.9 Chronic kidney disease, unspecified; E11.22 Type 2 diabetes mellitus with diabetic chronic kidney disease; D50.0 Iron deficiency anemia secondary to blood loss (chronic); E86.1 Hypovolemia; I12.9 Hypertensive chronic kidney disease with stage 1 through stage 4 chronic kidney disease, or unspecified chronic kidney disease; B96.5 Pseudomonas (aeruginosa) (mallei) (pseudomallei) as the cause of diseases classified elsewhere; B96.89 Other specified bacterial agents as the cause of diseases classified elsewhere; E03.9 Hypothyroidism, unspecified; Z20.822 Contact with and (suspected) exposure to COVID-19; E78.00 Pure hypercholesterolemia, unspecified; F20.9 Schizophrenia, unspecified; K21.9 Gastro-esophageal reflux disease without esophagitis; I44.0 Atrioventricular block, first degree; K44.9 Diaphragmatic hernia without obstruction or gangrene; R13.12 Dysphagia, oropharyngeal phase; Z74.01 Bed confinement status; Z86.718 Personal history of other venous thrombosis and embolism; Z93.0 Tracheostomy status; Z93.1 Gastrostomy status; Z95.828 Presence of other vascular implants and grafts; Z79.899 Other long term (current) drug therapy; Z68.24 Body mass index [BMI] 24.0-24.9, adult
CPT/HCPCS: 36415; 36600; 71045; 74176; 80048; 80053; 80202; 81003; 82270; 82375; 82533; 82607; 82728; 82746; 82805; 82962; 83036; 83520; 83540; 83550; 83605; 83735; 83930; 83935; 84100; 84145; 84295; 84439; 84443; 84480; 85014; 85018; 85025; 85027; 85044; 86850; 86900; 86920; 87015; 87045; 87070; 87077; 87106; 87186; 87426; 87427; 87449; 87493; 87804; 88305; 89055; 93005; 93306; 93970; 94002; 94003; 94640; 99291; C1893; C9113; C9803; J1815; J2250; J2543; J2704; J3010; J3370; J3490; J7030; J7040; J7042; J7060; J7070; P9016

== ENCOUNTER 2022-07-14 19:13 | Inpatient (IN) | payer MEDICARE, MEDICAID ==
[~2022-07-14] VITALS: Ht 182.9 cm; Wt 52.2 kg
[~2022-07-14 19:13] MED LIST: FURO-152 PO; INSU100V37 SQ; LEVO500T90 MT; MIDO5TAB4 MT; MOM MT
[2022-07-14] MEDS ORDERED: SODIUM CHLORIDE 0.9% 1000ML BAG (SEPSIS BOLUS) IV ONE (20:00)
[2022-07-14] MEDS ORDERED: VANCOMYCIN 1G PREMIX 200 ML IV ONE (20:00)
[2022-07-14] MEDS ORDERED: PIPERACILLIN/TAZ 3.375G PREMIX 50 ML IV ONE (20:00)
[2022-07-14 20:09] LABS: BG BASE EXCESS 11.4 mmol/L (-2.0-2.0); BG CARBOXYHEMOGLOBIN 0.5 % (0.5-1.5); BG DEOXYHEMOGLOBIN 2.4 % (0.0-5.0); BG FRACTION INSPIRED OXYGEN 40; BG HCO3 ACT 35.2 mmol/L (22.0-26.0); BG METHEMOGLOBIN 0.5 % (0.0-1.5); BG OXYGEN SATURATION 97.6 % (92.0-98.5); BG OXYHEMOGLOBIN 96.6 % (94.0-97.0); BG PCO2 43.5 mmHg (35.0-45.0); BG PH 7.526 (7.350-7.450); BG PO2 94.7 mmHg (75.0-100.0); BG SAMPLE SITE LEFT RADIAL; BG VENT MODE VENT - AC
[2022-07-14 20:14] LABS: MEAN CORPUSCULAR HEMOGLOBIN 26.8 pg (28.0-32.0); MEAN CORPUSCULAR VOLUME 83.4 fL (80.0-94.0); MEAN PLATELET VOLUME 7.9 fl (7.4-10.4); PLATELET 355 x1000/uL (130-400); RED BLOOD CELL COUNT 2.18 mill/uL (4.7-6.1)
[2022-07-14 20:16] LABS: CLARITY URINE CLOUDY (CLEAR); COLOR URINE YELLOW (YELLOW); KETONES URINE NEGATIVE (NEGATIVE); LEUKOCYTE ESTERASE URINE 3+ (NEGATIVE); NITRITE URINE NEGATIVE (NEGATIVE); OCCULT BLOOD URINE 1+ (NEGATIVE); PROTEIN URINE 2+ (NEGATIVE); SPECIFIC GRAVITY URINE 1.018 (1.005-1.030)
[2022-07-14 20:17] LABS: HEMATOCRIT. 18.2 % (42.0-52.0); HEMOGLOBIN. 5.8 g/dL (14.0-18.0)
[2022-07-14 20:22] LABS: INR 1.1; PROTHROMBIN TIME 11.9 sec (9.6-11.0)
[2022-07-14 20:27] LABS: CHLORIDE 96 mEq/L (98-107)
[2022-07-14 20:35] LABS: TOTAL IRON BINDING CAPACITY 151 ug/dL (250-450)
[2022-07-14 20:46] LABS: PLATELET ESTIMATE NORMAL
[2022-07-15] VITALS (39 sets, daily range): BP systolic 97–162; BP diastolic 49–88
[2022-07-15] MEDS: DEXT 5%/0.45% NACL 1000ML 1,000 ML IV SCH ×2 (04:06→15:14)
[2022-07-15 07:06] LABS: CLARITY URINE CLOUDY (CLEAR); COLOR URINE YELLOW (YELLOW); KETONES URINE NEGATIVE (NEGATIVE); LEUKOCYTE ESTERASE URINE 3+ (NEGATIVE); NITRITE URINE NEGATIVE (NEGATIVE); OCCULT BLOOD URINE 2+ (NEGATIVE); PH URINE 5.5 (4.5-8.0); PROTEIN URINE 2+ (NEGATIVE); UROBILINOGEN URINE 0.2 E.U./dL (0.2-1.0)
[2022-07-15] MEDS ORDERED: PANTOPRAZOLE SODIUM 40 MG/VIAL IV SCH (09:00)
[2022-07-15 09:59] LABS: BASOPHILS % 0.1 % (0.0-2.0); EOSINOPHILS % 0.1 % (0.0-5.0); HEMATOCRIT. 22.7 % (42.0-52.0); LYMPHOCYTES % 7.4 % (20.0-50.0); MEAN CORPUSCULAR HEMOGLOBIN 29.9 pg (28.0-32.0); MEAN CORPUSCULAR VOLUME 84.6 fL (80.0-94.0); MEAN PLATELET VOLUME 7.7 fl (7.4-10.4); MONOCYTES % 4.5 % (2.0-8.0); NEUTROPHILS % 87.9 % (40.0-76.0); PLATELET 301 x1000/uL (130-400); RED BLOOD CELL COUNT 2.68 mill/uL (4.7-6.1); RED CELL DISTRIBUTION WIDTH 18.9 % (11.6-14.6)
[2022-07-15 10:07] LABS: CHLORIDE 104 mEq/L (98-107)
[2022-07-15] MEDS ORDERED: IPRATROPIUM/ALBUTEROL 0.5-3(2.5)MG/3ML NEB HHN PRN (11:30)
[2022-07-15] MEDS ORDERED: CEFTRIAXONE 1 G PREMIX 50 ML IV SCH (11:30)
[2022-07-15] MEDS ORDERED: CEFTRIAXONE 1,000 MG in DEXTROSE 5% WATER 50 ML IV SCH (13:00)
[2022-07-15] MEDS: PIPERACILLIN/TAZOBACTAM 3.375 G in DEXTROSE 5% WATER 50 ML IV SCH ×2 (15:35→21:52)
[2022-07-15] MEDS: VANCOMYCIN 750MG PMX (XELLIA) 150 ML IV SCH (15:35)
[2022-07-15] MEDS: PANTOPRAZOLE SODIUM 40 MG/VIAL IV SCH (21:52)
[2022-07-16] VITALS (39 sets, daily range): BP systolic 108–162; BP diastolic 39–114
[2022-07-16] MEDS: VANCOMYCIN 750MG PMX (XELLIA) 150 ML IV SCH ×3 (00:30→21:13)
[2022-07-16] MEDS: PIPERACILLIN/TAZOBACTAM 3.375 G in DEXTROSE 5% WATER 50 ML IV SCH ×2 (04:42→14:01)
[2022-07-16] MEDS: DEXT 5%/0.45% NACL 1000ML 1,000 ML IV SCH ×2 (04:43→18:45)
[2022-07-16 05:43] LABS: HEMATOCRIT. 25.6 % (42.0-52.0); HEMOGLOBIN. 8.6 g/dL (14.0-18.0); MEAN CORPUSCULAR HEMOGLOBIN 28.4 pg (28.0-32.0); MEAN CORPUSCULAR VOLUME 84.6 fL (80.0-94.0); MEAN PLATELET VOLUME 7.9 fl (7.4-10.4); PLATELET 360 x1000/uL (130-400); RED BLOOD CELL COUNT 3.03 mill/uL (4.7-6.1); RED CELL DISTRIBUTION WIDTH 18.9 % (11.6-14.6)
[2022-07-16 06:49] LABS: CHLORIDE 103 mEq/L (98-107)
[2022-07-16 07:28] LABS: PLATELET ESTIMATE NORMAL
[2022-07-16] MEDS: IPRATROPIUM/ALBUTEROL 0.5-3(2.5)MG/3ML NEB HHN SCH ×3 (08:07→20:08)
[2022-07-16] MEDS: PANTOPRAZOLE SODIUM 40 MG/VIAL IV SCH ×2 (08:25→21:13)
[2022-07-16] MEDS: KCL 10MEQ/50ML PREMIX 50 ML IV SCH ×3 (08:25→14:00)
[2022-07-16] MEDS ORDERED: DEXTROSE 50% WATER 50ML SYRINGE IV PRN (13:15)
[2022-07-16] MEDS: INSULIN LISPRO 100 UNITS/ML SUBCUT SCH ×3 (13:20→21:00)
[2022-07-16] MEDS: BLOOD SUGAR DIAGNOSTIC STRIP TEST SCH ×2 (18:31→21:00)
[2022-07-16] MEDS: MEROPENEM 1,000 MG in SODIUM CHLORIDE 0.9% 100 ML IV SCH (21:07)
[2022-07-17] VITALS (46 sets, daily range): BP systolic 103–171; BP diastolic 58–94
[2022-07-17] MEDS: IPRATROPIUM/ALBUTEROL 0.5-3(2.5)MG/3ML NEB HHN SCH ×4 (01:32→20:19)
[2022-07-17] MEDS: MEROPENEM 1,000 MG in SODIUM CHLORIDE 0.9% 100 ML IV SCH ×3 (04:23→20:32)
[2022-07-17 05:37] LABS: BASOPHILS % 0.2 % (0.0-2.0); EOSINOPHILS % 0.5 % (0.0-5.0); HEMATOCRIT. 26.9 % (42.0-52.0); HEMOGLOBIN. 8.9 g/dL (14.0-18.0); LYMPHOCYTES % 9.6 % (20.0-50.0); MEAN CORPUSCULAR HEMOGLOBIN 28.2 pg (28.0-32.0); MEAN PLATELET VOLUME 7.5 fl (7.4-10.4); MONOCYTES % 5.9 % (2.0-8.0); NEUTROPHILS % 83.8 % (40.0-76.0); PLATELET 347 x1000/uL (130-400); RED BLOOD CELL COUNT 3.16 mill/uL (4.7-6.1)
[2022-07-17 06:40] LABS: CHLORIDE 102 mEq/L (98-107)
[2022-07-17] MEDS: BLOOD SUGAR DIAGNOSTIC STRIP TEST SCH ×4 (07:10→23:50)
[2022-07-17 08:26] LABS: BG BASE EXCESS 5.5 mmol/L (-2.0-2.0); BG CARBOXYHEMOGLOBIN 0.3 % (0.5-1.5); BG DEOXYHEMOGLOBIN 1.8 % (0.0-5.0); BG FRACTION INSPIRED OXYGEN 30; BG HCO3 ACT 28.6 mmol/L (22.0-26.0); BG METHEMOGLOBIN 0.2 % (0.0-1.5); BG OXYGEN SATURATION 98.2 % (92.0-98.5); BG OXYHEMOGLOBIN 97.7 % (94.0-97.0); BG PH 7.518 (7.350-7.450); BG PO2 111.2 mmHg (75.0-100.0); BG SAMPLE SITE LEFT RADIAL; BG TOTAL HEMOGLOBIN 9.5 g/dL (12.0-18.0); BG VENT MODE VENT - AC
[2022-07-17] MEDS: PANTOPRAZOLE SODIUM 40 MG/VIAL IV SCH ×2 (08:58→21:03)
[2022-07-17] MEDS: DEXT 5%/0.45% NACL 1000ML 1,000 ML IV SCH ×2 (08:59→21:02)
[2022-07-17] MEDS: THIAMINE HCL 100MG TABLET PEG SCH (09:00)
[2022-07-17] MEDS: MULTIVITAMINS,THER W-MINERALS TABLET PEG SCH (09:00)
[2022-07-17] MEDS: INSULIN LISPRO 100 UNITS/ML SUBCUT SCH ×4 (09:00→23:50)
[2022-07-17] MEDS: KCL 20MEQ/100ML PREMIX 100 ML IV SCH ×2 (09:16→10:51)
[2022-07-17] MEDS ORDERED: BISACODYL 10MG SUPP PR NR (13:30)
[2022-07-17] MEDS: METOCLOPRAMIDE HCL 10MG/2ML VIAL IV SCH ×3 (14:14→23:23)
[2022-07-17] MEDS: VANCOMYCIN 1GM PMX (XELLIA) 200 ML IV SCH (18:29)
[2022-07-18] VITALS (44 sets, daily range): BP systolic 74–168; BP diastolic 51–106
[2022-07-18] MEDS ORDERED: BISACODYL 10MG SUPP PR PRN (00:01)
[2022-07-18] MEDS: IPRATROPIUM/ALBUTEROL 0.5-3(2.5)MG/3ML NEB HHN SCH ×4 (01:34→20:07)
[2022-07-18] MEDS: MEROPENEM 1,000 MG in SODIUM CHLORIDE 0.9% 100 ML IV SCH ×3 (03:40→21:49)
[2022-07-18 05:56] LABS: BASOPHILS % 0.1 % (0.0-2.0); EOSINOPHILS % 0.6 % (0.0-5.0); HEMATOCRIT. 25.1 % (42.0-52.0); HEMOGLOBIN. 8.8 g/dL (14.0-18.0); LYMPHOCYTES % 9.4 % (20.0-50.0); MEAN CORPUSCULAR HEMOGLOBIN 29.2 pg (28.0-32.0); MEAN CORPUSCULAR VOLUME 82.9 fL (80.0-94.0); MEAN PLATELET VOLUME 7.3 fl (7.4-10.4); MONOCYTES % 5.2 % (2.0-8.0); NEUTROPHILS % 84.7 % (40.0-76.0); PLATELET 392 x1000/uL (130-400); RED BLOOD CELL COUNT 3.03 mill/uL (4.7-6.1); RED CELL DISTRIBUTION WIDTH 19.2 % (11.6-14.6)
[2022-07-18] MEDS: BLOOD SUGAR DIAGNOSTIC STRIP TEST SCH ×3 (06:18→17:10)
[2022-07-18] MEDS: METOCLOPRAMIDE HCL 10MG/2ML VIAL IV SCH ×3 (06:18→17:28)
[2022-07-18] MEDS: INSULIN LISPRO 100 UNITS/ML SUBCUT SCH ×3 (06:18→17:11)
[2022-07-18 07:10] LABS: CHLORIDE 101 mEq/L (98-107)
[2022-07-18] MEDS: PANTOPRAZOLE SODIUM 40 MG/VIAL IV SCH ×2 (09:16→21:49)
[2022-07-18] MEDS: THIAMINE HCL 100MG TABLET PEG SCH (09:16)
[2022-07-18] MEDS: MULTIVITAMINS,THER W-MINERALS TABLET PEG SCH (09:16)
[2022-07-18] MEDS: KCL 20MEQ/100ML PREMIX 100 ML IV SCH ×2 (09:17→11:23)
[2022-07-18] MEDS: DEXT 5%/0.45% NACL 1000ML 1,000 ML IV SCH (09:46)
[2022-07-18] MEDS: VANCOMYCIN 1GM PMX (XELLIA) 200 ML IV SCH (12:39)
[2022-07-18] MEDS ORDERED: KCL 20MEQ/100ML PREMIX 100 ML IV NR (13:30)
[2022-07-19] VITALS (20 sets, daily range): BP systolic 110–166; BP diastolic 58–86
[2022-07-19] MEDS: DEXT 5%/0.45% NACL 1000ML 1,000 ML IV SCH ×2 (01:18→14:50)
[2022-07-19] MEDS: METOCLOPRAMIDE HCL 10MG/2ML VIAL IV SCH ×4 (01:18→17:31)
[2022-07-19] MEDS: INSULIN LISPRO 100 UNITS/ML SUBCUT SCH ×4 (01:20→17:21)
[2022-07-19] MEDS: IPRATROPIUM/ALBUTEROL 0.5-3(2.5)MG/3ML NEB HHN SCH ×4 (02:27→19:53)
[2022-07-19] MEDS: MEROPENEM 1,000 MG in SODIUM CHLORIDE 0.9% 100 ML IV SCH ×3 (03:18→20:24)
[2022-07-19 05:31] LABS: BASOPHILS % 0.2 % (0.0-2.0); EOSINOPHILS % 0.3 % (0.0-5.0); HEMATOCRIT. 25.7 % (42.0-52.0); HEMOGLOBIN. 8.9 g/dL (14.0-18.0); LYMPHOCYTES % 8.5 % (20.0-50.0); MEAN CORPUSCULAR HEMOGLOBIN 28.6 pg (28.0-32.0); MEAN CORPUSCULAR VOLUME 82.8 fL (80.0-94.0); MEAN PLATELET VOLUME 7.2 fl (7.4-10.4); MONOCYTES % 5.3 % (2.0-8.0); NEUTROPHILS % 85.7 % (40.0-76.0); PLATELET 425 x1000/uL (130-400)
[2022-07-19 05:38] LABS: CHLORIDE 97 mEq/L (98-107)
[2022-07-19] MEDS: VANCOMYCIN 1GM PMX (XELLIA) 200 ML IV SCH (05:39)
[2022-07-19] MEDS: BLOOD SUGAR DIAGNOSTIC STRIP TEST SCH ×4 (05:39→17:21)
[2022-07-19 05:48] LABS: VANCOMYCIN TROUGH 13.6 ug/mL (5.0-10.0)
[2022-07-19] MEDS: MULTIVITAMINS,THER W-MINERALS TABLET PEG SCH (08:21)
[2022-07-19] MEDS: THIAMINE HCL 100MG TABLET PEG SCH (08:21)
[2022-07-19] MEDS: PANTOPRAZOLE SODIUM 40 MG/VIAL IV SCH ×2 (08:21→20:24)
[2022-07-20] VITALS (9 sets, daily range): BP systolic 124–154; BP diastolic 69–79
[2022-07-20] MEDS: METOCLOPRAMIDE HCL 10MG/2ML VIAL IV SCH ×4 (01:20→17:38)
[2022-07-20] MEDS: VANCOMYCIN 1GM PMX (XELLIA) 200 ML IV SCH (01:26)
[2022-07-20] MEDS: INSULIN LISPRO 100 UNITS/ML SUBCUT SCH ×4 (01:31→17:28)
[2022-07-20] MEDS: IPRATROPIUM/ALBUTEROL 0.5-3(2.5)MG/3ML NEB HHN SCH ×3 (01:47→12:34)
[2022-07-20] MEDS: DEXT 5%/0.45% NACL 1000ML 1,000 ML IV SCH ×2 (02:45→17:39)
[2022-07-20] MEDS: BLOOD SUGAR DIAGNOSTIC STRIP TEST SCH ×4 (05:02→17:28)
[2022-07-20] MEDS: MEROPENEM 1,000 MG in SODIUM CHLORIDE 0.9% 100 ML IV SCH ×2 (05:32→12:15)
[2022-07-20 08:19] LABS: BASOPHILS % 0.2 % (0.0-2.0); EOSINOPHILS % 0.3 % (0.0-5.0); HEMATOCRIT. 26.6 % (42.0-52.0); LYMPHOCYTES % 9.4 % (20.0-50.0); MEAN CORPUSCULAR HEMOGLOBIN 28.2 pg (28.0-32.0); MEAN PLATELET VOLUME 7.2 fl (7.4-10.4); MONOCYTES % 4.9 % (2.0-8.0); NEUTROPHILS % 85.2 % (40.0-76.0); PLATELET 434 x1000/uL (130-400); RED CELL DISTRIBUTION WIDTH 19.5 % (11.6-14.6)
[2022-07-20 08:41] LABS: CHLORIDE 95 mEq/L (98-107)
[2022-07-20] MEDS: THIAMINE HCL 100MG TABLET PEG SCH (09:23)
[2022-07-20] MEDS: MULTIVITAMINS,THER W-MINERALS TABLET PEG SCH (09:23)
[2022-07-20] MEDS: PANTOPRAZOLE SODIUM 40 MG/VIAL IV SCH (09:23)
[2022-07-20] MEDS ORDERED: VANCOMYCIN 1GM PMX (XELLIA) 200 ML IV SCH (18:00)
== END 2022-07-20 19:44 | DRG 870 ==
LOC: ER 19:13 → EDBEDREQ 22:29 → EDBEDREQTM 22:33 → ENRESERV 22:46 → CVICU 07-15 00:43 → 5EST 07-19 13:59
PROVIDERS: ADMIT Internal Medicine; ATTEND Internal Medicine
PROC: 5A1955Z Respiratory Ventilation, Greater than 96 Consecutive Hours (ICD-10-PCS; principal; 2022-07-15)
PROC: 30233N1 Transfusion of Nonautologous Red Blood Cells into Peripheral Vein, Percutaneous Approach (ICD-10-PCS; 2022-07-15)
PROC: 05H633Z Insertion of Infusion Device into Left Subclavian Vein, Percutaneous Approach (ICD-10-PCS; 2022-07-15)
PROC: B547ZZA Ultrasonography of Left Subclavian Vein, Guidance (ICD-10-PCS; 2022-07-15)
DX: A41.51 Sepsis due to Escherichia coli [E. coli] (principal); J15.0 Pneumonia due to Klebsiella pneumoniae; J69.0 Pneumonitis due to inhalation of food and vomit; J15.6 Pneumonia due to other Gram-negative bacteria; N39.0 Urinary tract infection, site not specified; N17.9 Acute kidney failure, unspecified; J96.10 Chronic respiratory failure, unspecified whether with hypoxia or hypercapnia; L03.313 Cellulitis of chest wall; E87.1 Hypo-osmolality and hyponatremia; J44.0 Chronic obstructive pulmonary disease with (acute) lower respiratory infection; Z99.11 Dependence on respirator [ventilator] status; D64.9 Anemia, unspecified; E11.9 Type 2 diabetes mellitus without complications; I11.0 Hypertensive heart disease with heart failure; I50.9 Heart failure, unspecified; K21.9 Gastro-esophageal reflux disease without esophagitis; F20.9 Schizophrenia, unspecified; G31.84 Mild cognitive impairment of uncertain or unknown etiology; R13.10 Dysphagia, unspecified; K44.9 Diaphragmatic hernia without obstruction or gangrene; K59.00 Constipation, unspecified; Z20.822 Contact with and (suspected) exposure to COVID-19; Z86.718 Personal history of other venous thrombosis and embolism; Z95.828 Presence of other vascular implants and grafts; Z93.1 Gastrostomy status; Z93.0 Tracheostomy status
CPT/HCPCS: 36415; 36573; 36600; 71045; 80048; 80053; 80076; 80202; 81003; 82375; 82607; 82728; 82746; 82805; 82962; 83036; 83540; 83550; 83605; 83735; 83880; 84132; 84145; 84484; 85025; 85044; 86850; 86870; 86900; 86920; 87070; 87077; 87186; 87426; 93005; 94002; 94003; 94640; 99291; C1725; C9113; C9803; J0696; J1815; J2185; J2543; J2765; J3370; J3480; J7030; J7050; J7060; P9016; A4315

== ENCOUNTER 2022-08-08 20:25 | Inpatient (IN) | payer MEDICARE, MEDICAID ==
[~2022-08-08] VITALS: Ht 162.6 cm; Wt 52.2 kg
[~2022-08-08 20:25] MED LIST changes: +LEVO-65 MT; -LEVO500T90 MT
[2022-08-08] MEDS ORDERED: SODIUM CHLORIDE 0.9% 1000ML BAG (SEPSIS BOLUS) IV ONE (23:15)
[2022-08-08 23:36] LABS: BASOPHILS % 0.1 % (0.0-2.0); EOSINOPHILS % 2.1 % (0.0-5.0); HEMATOCRIT. 23.9 % (42.0-52.0); HEMOGLOBIN. 8.2 g/dL (14.0-18.0); LYMPHOCYTES % 9.4 % (20.0-50.0); MEAN CORPUSCULAR HEMOGLOBIN 28.2 pg (28.0-32.0); MEAN CORPUSCULAR VOLUME 82.6 fL (80.0-94.0); MONOCYTES % 5.9 % (2.0-8.0); NEUTROPHILS % 82.5 % (40.0-76.0); PLATELET 226 x1000/uL (130-400); RED BLOOD CELL COUNT 2.89 mill/uL (4.7-6.1); RED CELL DISTRIBUTION WIDTH 18.6 % (11.6-14.6)
[2022-08-08 23:56] LABS: CHLORIDE 92 mEq/L (98-107)
[2022-08-09] VITALS (9 sets, daily range): BP systolic 98–139; BP diastolic 49–71
[2022-08-09 01:41] LABS: CLARITY URINE CLOUDY (CLEAR); COLOR URINE YELLOW (YELLOW); KETONES URINE NEGATIVE (NEGATIVE); PROTEIN URINE 1+ (NEGATIVE)
[2022-08-09 01:42] LABS: LEUKOCYTE ESTERASE URINE 2+ (NEGATIVE); NITRITE URINE NEGATIVE (NEGATIVE); OCCULT BLOOD URINE 3+ (NEGATIVE); UROBILINOGEN URINE 0.2 E.U./dL (0.2-1.0)
[2022-08-09] MEDS ORDERED: ACETAMINOPHEN 650MG/20.3ML UDC GT PRN (09:45)
[2022-08-09] MEDS ORDERED: ENOXAPARIN 40MG/0.4ML SYR SUBCUT SCH (10:00)
[2022-08-09] MEDS ORDERED: SULFAMETHOXAZOLE/TRIMETHOPRIM 800/160MG TABLET PO SCH (10:00)
[2022-08-09] MEDS ORDERED: ACETAMINOPHEN 325MG TABLET PO PRN (11:15)
[2022-08-09] MEDS ORDERED: ONDANSETRON HCL 4MG/2ML INJ IV PRN (11:15)
[2022-08-09] MEDS: IPRATROPIUM/ALBUTEROL 0.5-3(2.5)MG/3ML NEB HHN SCH ×3 (12:30→20:30)
[2022-08-09] MEDS: PANTOPRAZOLE SODIUM 40 MG/VIAL IV SCH (12:52)
[2022-08-09] MEDS: SODIUM CHLORIDE 0.9% 1,000 ML IV SCH ×2 (14:39→21:54)
[2022-08-09] MEDS: MEROPENEM 1,000 MG in SODIUM CHLORIDE 0.9% 100 ML IV SCH ×2 (14:46→21:53)
[2022-08-09 18:25] LABS: TOTAL IRON BINDING CAPACITY 207 ug/dL (250-450)
[2022-08-09] MEDS ORDERED: DEXTROSE 50% WATER 50ML SYRINGE IV PRN (20:45)
[2022-08-09] MEDS: QUETIAPINE FUMARATE 50MG TABLET GT SCH (21:50)
[2022-08-09] MEDS: LEVETIRACETAM 500MG/5ML CUP GT SCH (21:50)
[2022-08-09] MEDS: HYDRALAZINE HCL 25MG TABLET GT SCH (21:53)
[2022-08-10] VITALS (12 sets, daily range): BP systolic 82–134; BP diastolic 50–89
[2022-08-10] MEDS: IPRATROPIUM/ALBUTEROL 0.5-3(2.5)MG/3ML NEB HHN SCH ×6 (00:15→20:35)
[2022-08-10] MEDS: BLOOD SUGAR DIAGNOSTIC STRIP TEST SCH ×4 (00:44→18:08)
[2022-08-10] MEDS: MEROPENEM 1,000 MG in SODIUM CHLORIDE 0.9% 100 ML IV SCH ×3 (05:08→23:04)
[2022-08-10] MEDS: HYDRALAZINE HCL 25MG TABLET GT SCH ×3 (05:12→22:00)
[2022-08-10] MEDS: INSULIN LISPRO 100 UNITS/ML SUBCUT SCH ×4 (05:16→18:00)
[2022-08-10] MEDS: SODIUM CHLORIDE 0.9% 1,000 ML IV SCH ×2 (05:17→11:09)
[2022-08-10 06:36] LABS: BASOPHILS % 0.3 % (0.0-2.0); EOSINOPHILS % 2.8 % (0.0-5.0); HEMATOCRIT. 22.8 % (42.0-52.0); HEMOGLOBIN. 7.8 g/dL (14.0-18.0); LYMPHOCYTES % 13.7 % (20.0-50.0); MEAN CORPUSCULAR HEMOGLOBIN 28.2 pg (28.0-32.0); MEAN CORPUSCULAR VOLUME 82.9 fL (80.0-94.0); MEAN PLATELET VOLUME 7.8 fl (7.4-10.4); MONOCYTES % 5.8 % (2.0-8.0); NEUTROPHILS % 77.4 % (40.0-76.0); PLATELET 231 x1000/uL (130-400); RED BLOOD CELL COUNT 2.75 mill/uL (4.7-6.1); RED CELL DISTRIBUTION WIDTH 18.2 % (11.6-14.6)
[2022-08-10 08:03] LABS: CHLORIDE 98 mEq/L (98-107)
[2022-08-10] MEDS: PANTOPRAZOLE SODIUM 40 MG/VIAL IV SCH (08:49)
[2022-08-10] MEDS: QUETIAPINE FUMARATE 50MG TABLET GT SCH ×2 (08:49→20:42)
[2022-08-10] MEDS: LEVETIRACETAM 500MG/5ML CUP GT SCH ×2 (08:54→20:42)
[2022-08-10] MEDS ORDERED: FERROUS SULFATE 300MG/5ML UDC GT SCH (09:00)
[2022-08-10] MEDS ORDERED: POTASSIUM CHLORIDE 20MEQ/PACKET PO NR (10:30)
[2022-08-10] MEDS: METHYLPREDNISOLONE SOD SUCC 40 MG/ML VIAL IV SCH (11:08)
[2022-08-11] VITALS (12 sets, daily range): BP systolic 111–137; BP diastolic 46–77
[2022-08-11] MEDS: IPRATROPIUM/ALBUTEROL 0.5-3(2.5)MG/3ML NEB HHN SCH ×6 (00:32→20:12)
[2022-08-11] MEDS: BLOOD SUGAR DIAGNOSTIC STRIP TEST SCH ×5 (05:14→23:47)
[2022-08-11] MEDS: HYDRALAZINE HCL 25MG TABLET GT SCH ×3 (05:14→21:52)
[2022-08-11] MEDS: MEROPENEM 1,000 MG in SODIUM CHLORIDE 0.9% 100 ML IV SCH ×3 (05:14→21:48)
[2022-08-11] MEDS: SODIUM CHLORIDE 0.9% 1,000 ML IV SCH (05:15)
[2022-08-11] MEDS: INSULIN LISPRO 100 UNITS/ML SUBCUT SCH ×5 (05:29→23:47)
[2022-08-11 07:07] LABS: BASOPHILS % 0.2 % (0.0-2.0); HEMATOCRIT. 23.8 % (42.0-52.0); LYMPHOCYTES % 12.8 % (20.0-50.0); MEAN CORPUSCULAR HEMOGLOBIN 28.1 pg (28.0-32.0); MEAN CORPUSCULAR VOLUME 83.4 fL (80.0-94.0); MONOCYTES % 4.7 % (2.0-8.0); NEUTROPHILS % 82.3 % (40.0-76.0); RED BLOOD CELL COUNT 2.85 mill/uL (4.7-6.1); RED CELL DISTRIBUTION WIDTH 18.5 % (11.6-14.6)
[2022-08-11 07:56] LABS: CHLORIDE 105 mEq/L (98-107)
[2022-08-11 08:00] LABS: PHOSPHORUS 2.5 mg/dL (2.5-4.9)
[2022-08-11] MEDS: QUETIAPINE FUMARATE 50MG TABLET GT SCH ×2 (09:00→21:48)
[2022-08-11] MEDS: FERROUS SULFATE 300MG/5ML UDC GT SCH (09:00)
[2022-08-11] MEDS: PANTOPRAZOLE SODIUM 40 MG/VIAL IV SCH (09:00)
[2022-08-11] MEDS: LEVETIRACETAM 500MG/5ML CUP GT SCH ×2 (09:00→21:53)
[2022-08-11] MEDS: METHYLPREDNISOLONE SOD SUCC 40 MG/ML VIAL IV SCH (09:00)
[2022-08-11 10:18] LABS: PLATELET 267 x1000/uL (130-400)
[2022-08-11] MEDS ORDERED: KEPPSOL GT (12:53)
[2022-08-11] MEDS ORDERED: FE300LUD GT (12:53)
[2022-08-11] MEDS ORDERED: IPRA3AMP9 HHN (12:53)
[2022-08-11] MEDS ORDERED: QUET50TA GT (12:53)
[2022-08-12] VITALS (12 sets, daily range): BP systolic 105–148; BP diastolic 53–67
[2022-08-12] MEDS: IPRATROPIUM/ALBUTEROL 0.5-3(2.5)MG/3ML NEB HHN SCH ×7 (00:15→23:58)
[2022-08-12] MEDS: INSULIN LISPRO 100 UNITS/ML SUBCUT SCH ×3 (05:55→18:00)
[2022-08-12] MEDS: MEROPENEM 1,000 MG in SODIUM CHLORIDE 0.9% 100 ML IV SCH ×2 (05:55→14:59)
[2022-08-12] MEDS: HYDRALAZINE HCL 25MG TABLET GT SCH ×3 (05:56→21:19)
[2022-08-12] MEDS: BLOOD SUGAR DIAGNOSTIC STRIP TEST SCH ×3 (05:56→18:00)
[2022-08-12 06:25] LABS: HEMATOCRIT. 25.1 % (42.0-52.0); HEMOGLOBIN. 8.4 g/dL (14.0-18.0); MEAN CORPUSCULAR VOLUME 83.9 fL (80.0-94.0); MEAN PLATELET VOLUME 7.5 fl (7.4-10.4); PLATELET 278 x1000/uL (130-400); RED CELL DISTRIBUTION WIDTH 18.4 % (11.6-14.6)
[2022-08-12] MEDS: PANTOPRAZOLE SODIUM 40 MG/VIAL IV SCH (09:29)
[2022-08-12] MEDS: QUETIAPINE FUMARATE 50MG TABLET GT SCH ×2 (09:30→21:19)
[2022-08-12] MEDS: METHYLPREDNISOLONE SOD SUCC 40 MG/ML VIAL IV SCH (09:30)
[2022-08-12] MEDS: LEVETIRACETAM 500MG/5ML CUP GT SCH ×2 (09:30→21:18)
[2022-08-12] MEDS: FERROUS SULFATE 300MG/5ML UDC GT SCH (09:30)
[2022-08-12 10:28] LABS: CHLORIDE 105 mEq/L (98-107)
[2022-08-12 15:20] LABS: PLATELET ESTIMATE NORMAL
[2022-08-12] MEDS ORDERED: CEFTRIAXONE 1,000 MG in DEXTROSE 5% WATER 50 ML IV SCH (20:30)
[2022-08-13] VITALS (11 sets, daily range): BP systolic 113–138; BP diastolic 54–90
[2022-08-13] MEDS: IPRATROPIUM/ALBUTEROL 0.5-3(2.5)MG/3ML NEB HHN SCH ×4 (04:22→16:16)
[2022-08-13] MEDS: INSULIN LISPRO 100 UNITS/ML SUBCUT SCH ×4 (05:36→18:00)
[2022-08-13] MEDS: HYDRALAZINE HCL 25MG TABLET GT SCH ×2 (05:36→14:26)
[2022-08-13] MEDS: BLOOD SUGAR DIAGNOSTIC STRIP TEST SCH ×4 (05:36→18:00)
[2022-08-13] MEDS: PANTOPRAZOLE SODIUM 40 MG/VIAL IV SCH (09:18)
[2022-08-13] MEDS: QUETIAPINE FUMARATE 50MG TABLET GT SCH (09:18)
[2022-08-13] MEDS: LEVETIRACETAM 500MG/5ML CUP GT SCH (09:18)
[2022-08-13] MEDS: FERROUS SULFATE 300MG/5ML UDC GT SCH (09:20)
[2022-08-13 09:23] LABS: BG BASE EXCESS 6.2 mmol/L (-2.0-2.0); BG CARBOXYHEMOGLOBIN 0.3 % (0.5-1.5); BG DEOXYHEMOGLOBIN 2.7 % (0.0-5.0); BG FRACTION INSPIRED OXYGEN 30; BG HCO3 ACT 30.2 mmol/L (22.0-26.0); BG METHEMOGLOBIN 0.2 % (0.0-1.5); BG OXYGEN SATURATION 97.3 % (92.0-98.5); BG OXYHEMOGLOBIN 96.8 % (94.0-97.0); BG PCO2 41.5 mmHg (35.0-45.0); BG PO2 94.1 mmHg (75.0-100.0); BG SAMPLE SITE RIGHT RADIAL; BG TOTAL HEMOGLOBIN 9.7 g/dL (12.0-18.0); BG VENT MODE VENT - AC
[2022-08-13] MEDS ORDERED: METOCLOPRAMIDE HCL 10MG/2ML VIAL IV SCH (14:00)
== END 2022-08-13 18:30 | DRG 870 ==
LOC: ER 20:25 → 5EST 08-09 00:58 → EDBEDREQTM 08-09 01:01 → EDBEDREQ 08-09 01:01 → EDBEDREQSVC 08-09 01:01 → ENRESERV 08-09 04:37
PROVIDERS: ADMIT Internal Medicine; ATTEND Internal Medicine
PROC: 5A1955Z Respiratory Ventilation, Greater than 96 Consecutive Hours (ICD-10-PCS; principal; 2022-08-09)
DX: A41.59 Other Gram-negative sepsis (principal); E43 Unspecified severe protein-calorie malnutrition; N17.9 Acute kidney failure, unspecified; J96.10 Chronic respiratory failure, unspecified whether with hypoxia or hypercapnia; Z99.11 Dependence on respirator [ventilator] status; Z68.1 Body mass index [BMI] 19.9 or less, adult; N39.0 Urinary tract infection, site not specified; J84.9 Interstitial pulmonary disease, unspecified; E87.1 Hypo-osmolality and hyponatremia; R13.10 Dysphagia, unspecified; E86.0 Dehydration; G40.909 Epilepsy, unspecified, not intractable, without status epilepticus; D64.9 Anemia, unspecified; R62.7 Adult failure to thrive; I10 Essential (primary) hypertension; E87.6 Hypokalemia; Z93.0 Tracheostomy status; Z93.1 Gastrostomy status; Z86.718 Personal history of other venous thrombosis and embolism; Z95.828 Presence of other vascular implants and grafts; Z87.01 Personal history of pneumonia (recurrent); Z20.822 Contact with and (suspected) exposure to COVID-19
CPT/HCPCS: 36415; 36600; 71045; 80048; 80053; 81003; 82375; 82805; 82962; 83036; 83540; 83550; 83605; 83735; 84100; 84145; 85025; 85379; 87070; 87077; 87186; 93005; 94002; 94003; 94640; 99285; C9113; J0696; J1815; J2185; J2765; J2920; J7030; J7050; J7060

== ENCOUNTER 2022-09-11 02:01 | Inpatient (IN) | payer MEDICARE, MEDICAID ==
[~2022-09-11] VITALS: Ht 162.6 cm; Wt 54.5 kg
[2022-09-11] VITALS (10 sets, daily range): BP systolic 93–159; BP diastolic 32–87
[~2022-09-11 02:01] MED LIST changes: +FE300LUD GT; -FURO-152 PO; +IPRA3AMP9 HHN; +KEPPSOL GT; -LEVO-65 MT; +QUET50TA GT
[2022-09-11] MEDS ORDERED: SODIUM CHLORIDE 0.9% 1,000 ML IV ONE ×2 (02:15→06:15)
[2022-09-11 02:56] LABS: HEMATOCRIT. 27.8 % (42.0-52.0); HEMOGLOBIN. 9.2 g/dL (14.0-18.0); MEAN CORPUSCULAR HEMOGLOBIN 27.7 pg (28.0-32.0); MEAN CORPUSCULAR VOLUME 83.4 fL (80.0-94.0); MEAN PLATELET VOLUME 7.9 fl (7.4-10.4); PLATELET 566 x1000/uL (130-400); RED BLOOD CELL COUNT 3.33 mill/uL (4.7-6.1); RED CELL DISTRIBUTION WIDTH 20.6 % (11.6-14.6)
[2022-09-11 02:59] LABS: CHLORIDE 89 mEq/L (98-107)
[2022-09-11] MEDS ORDERED: FUROSEMIDE 100MG/10ML VIAL IV NR (03:13)
[2022-09-11] MEDS ORDERED: INSULIN REGULAR (HUMULIN R) 300UNITS/3ML VIAL IV ONE (03:15)
[2022-09-11] MEDS ORDERED: AZITHROMYCIN 500 MG in DEXT 5% WATER 250 ML IV SCH ×2 (03:15→08:00)
[2022-09-11] MEDS ORDERED: DEXTROSE 50% WATER 50ML SYRINGE IV ONE (03:15)
[2022-09-11] MEDS ORDERED: CALCIUM CHLORIDE 1GM/10ML SYR IV NR (03:15)
[2022-09-11] MEDS ORDERED: ALBUTEROL (0.083%) 2.5MG/3ML NEB HHN NR (03:15)
[2022-09-11] MEDS ORDERED: CEFTRIAXONE 1 G PREMIX 50 ML IV ONE ×2 (03:15→21:00)
[2022-09-11] MEDS ORDERED: SODIUM BICARBONATE 8.4% 1 MEQ/ML 50ML SYR IV ONE (03:15)
[2022-09-11 03:20] LABS: INR 1.1; PROTHROMBIN TIME 11.9 sec (9.6-11.0)
[2022-09-11] MEDS ORDERED: CEFTRIAXONE 1GM PREMIX 50ML IV NR (03:30)
[2022-09-11] MEDS ORDERED: AZITHROMYCIN 500MG/250ML 250 ML IV NR (03:30)
[2022-09-11 05:14] LABS: PLATELET ESTIMATE SLIGHTLY INCREASED
[2022-09-11] MEDS ORDERED: IPRATROPIUM/ALBUTEROL 0.5-3(2.5)MG/3ML NEB NEB PRN (06:15)
[2022-09-11] MEDS ORDERED: NA PHOS,M-B/NA PHOS,DI-BA ENEMA 118ML PR PRN (06:15)
[2022-09-11] MEDS ORDERED: ACETAMINOPHEN 325MG TABLET PO PRN ×2 (06:15)
[2022-09-11] MEDS ORDERED: DOCUSATE SODIUM 100MG CAPSULE PO PRN (06:15)
[2022-09-11] MEDS ORDERED: CLONIDINE 0.1MG TABLET PO PRN (06:15)
[2022-09-11] MEDS ORDERED: HYDROCODONE/ACETAMINOPHEN 5/325MG TABLET PO PRN (06:15)
[2022-09-11] MEDS ORDERED: NALOXONE HCL 0.4MG/ML VIAL IV PRN (06:15)
[2022-09-11] MEDS ORDERED: ONDANSETRON HCL 4MG/2ML INJ IV PRN (06:15)
[2022-09-11] MEDS ORDERED: DEXTROSE 50% WATER 50ML SYRINGE IV PRN (06:30)
[2022-09-11 06:44] LABS: BG BASE EXCESS 8.4 mmol/L (-2.0-2.0); BG CARBOXYHEMOGLOBIN 0.3 % (0.5-1.5); BG DEOXYHEMOGLOBIN 2.9 % (0.0-5.0); BG FRACTION INSPIRED OXYGEN 30; BG METHEMOGLOBIN 0.2 % (0.0-1.5); BG OXYGEN SATURATION 97.1 % (92.0-98.5); BG OXYHEMOGLOBIN 96.6 % (94.0-97.0); BG PCO2 40.5 mmHg (35.0-45.0); BG PH 7.516 (7.350-7.450); BG PO2 93.2 mmHg (75.0-100.0); BG SAMPLE SITE LEFT RADIAL; BG TOTAL HEMOGLOBIN 10.2 g/dL (12.0-18.0); BG VENT MODE VENT - AC
[2022-09-11 06:58] LABS: HEMATOCRIT. 27.8 % (42.0-52.0); HEMOGLOBIN. 9.4 g/dL (14.0-18.0); MEAN CORPUSCULAR HEMOGLOBIN 28.3 pg (28.0-32.0); MEAN CORPUSCULAR VOLUME 83.5 fL (80.0-94.0); MEAN PLATELET VOLUME 8.1 fl (7.4-10.4); PLATELET 483 x1000/uL (130-400); RED BLOOD CELL COUNT 3.33 mill/uL (4.7-6.1); RED CELL DISTRIBUTION WIDTH 20.7 % (11.6-14.6)
[2022-09-11 07:15] LABS: T4 FREE 1.01 ng/dL (0.76-1.46)
[2022-09-11 07:21] LABS: CREATINE KINASE 56 IU/L (39-308)
[2022-09-11 08:12] LABS: PLATELET ESTIMATE INCREASED
[2022-09-11] MEDS: INSULIN LISPRO 100 UNITS/ML SUBCUT SCH ×4 (08:20→21:00)
[2022-09-11] MEDS: PANTOPRAZOLE SODIUM 40 MG/VIAL IV SCH (08:37)
[2022-09-11] MEDS: BLOOD SUGAR DIAGNOSTIC STRIP TEST SCH ×3 (09:00→18:29)
[2022-09-11 10:03] LABS: FOLIC ACID (FOLATE) SERUM > 20.00 ng/mL (>5.38)
[2022-09-11] MEDS: IPRATROPIUM/ALBUTEROL 0.5-3(2.5)MG/3ML NEB NEB SCH ×3 (12:25→21:07)
[2022-09-11] MEDS ORDERED: SODIUM POLYSTYRENE SULFONATE 15 G/60 ML BOT PO NR (12:30)
[2022-09-11] MEDS ORDERED: INSULIN REGULAR (HUMULIN R) 300UNITS/3ML VIAL IV NR (12:30)
[2022-09-11] MEDS ORDERED: SODIUM BICARBONATE 8.4% 1 MEQ/ML 50ML SYR IV NR (12:30)
[2022-09-11] MEDS ORDERED: DEXTROSE 50% WATER 50ML SYRINGE IV NR (12:30)
[2022-09-11] MEDS ORDERED: CALCIUM CHLORIDE 1,000 MG in DEXT 5% WATER 90 ML IV NR (13:30)
[2022-09-11] MEDS: AZITHROMYCIN 500 MG in DEXT 5% WATER 250 ML IV SCH (14:04)
[2022-09-11] MEDS: ENOXAPARIN 30MG/0.3ML SYR SUBCUT SCH (14:06)
[2022-09-12] VITALS (17 sets, daily range): BP systolic 65–126; BP diastolic 22–98
[2022-09-12] MEDS: IPRATROPIUM/ALBUTEROL 0.5-3(2.5)MG/3ML NEB NEB SCH ×6 (00:15→20:31)
[2022-09-12] MEDS ORDERED: CEFTRIAXONE 1 G PREMIX 50 ML IV SCH (03:00)
[2022-09-12] MEDS: CEFTRIAXONE 1,000 MG in DEXTROSE 5% WATER 50 ML IV SCH ×2 (03:08→05:23)
[2022-09-12] MEDS: INSULIN LISPRO 100 UNITS/ML SUBCUT SCH ×4 (06:00→16:46)
[2022-09-12] MEDS: BLOOD SUGAR DIAGNOSTIC STRIP TEST SCH ×4 (06:00→16:46)
[2022-09-12 08:31] LABS: BG BASE EXCESS 9.6 mmol/L (-2.0-2.0); BG CARBOXYHEMOGLOBIN 0.8 % (0.5-1.5); BG FRACTION INSPIRED OXYGEN 30; BG HCO3 ACT 33.5 mmol/L (22.0-26.0); BG METHEMOGLOBIN 0.5 % (0.0-1.5); BG OXYHEMOGLOBIN 95.7 % (94.0-97.0); BG PCO2 42.7 mmHg (35.0-45.0); BG PH 7.512 (7.350-7.450); BG PO2 93.9 mmHg (75.0-100.0); BG SAMPLE SITE LEFT RADIAL; BG TOTAL HEMOGLOBIN 7.5 g/dL (12.0-18.0); BG TOTAL RESPIRATORY RATE 18 b/min; BG VENT MODE VENT - AC
[2022-09-12] MEDS: PANTOPRAZOLE SODIUM 40 MG/VIAL IV SCH (08:37)
[2022-09-12] MEDS: ENOXAPARIN 30MG/0.3ML SYR SUBCUT SCH (08:37)
[2022-09-12] MEDS ORDERED: LIDOCAINE HCL/PF 1% 10 MG/ML 5ML VIAL ONE (08:57)
[2022-09-12] MEDS ORDERED: LIDOCAINE HCL 1% 30ML VIAL (10MG/ML) ONE (09:42)
[2022-09-12 12:06] LABS: HEMATOCRIT 22.4 % (42.0-52.0); HEMOGLOBIN 7.4 g/dL (14.0-18.0); MEAN CORPUSCULAR HEMOGLOBIN 28.5 pg (28.0-32.0); PLATELET 315 x1000/uL (130-400); RED CELL DISTRIBUTION WIDTH 20.2 % (11.6-14.6)
[2022-09-12] MEDS: AZITHROMYCIN 500 MG in DEXT 5% WATER 250 ML IV SCH (13:33)
[2022-09-12 16:08] LABS: PHOSPHORUS 4.8 mg/dL (2.5-4.9)
[2022-09-12] MEDS ORDERED: POTASSIUM CHLORIDE 20MEQ/PACKET PEG SCH (18:30)
[2022-09-13] VITALS (12 sets, daily range): BP systolic 95–129; BP diastolic 16–95
[2022-09-13] MEDS: IPRATROPIUM/ALBUTEROL 0.5-3(2.5)MG/3ML NEB NEB SCH ×6 (00:22→20:32)
[2022-09-13] MEDS: CEFTRIAXONE 1,000 MG in DEXTROSE 5% WATER 50 ML IV SCH (02:31)
[2022-09-13] MEDS: INSULIN LISPRO 100 UNITS/ML SUBCUT SCH ×4 (05:46→18:00)
[2022-09-13] MEDS: BLOOD SUGAR DIAGNOSTIC STRIP TEST SCH ×4 (05:46→18:29)
[2022-09-13] MEDS: PANTOPRAZOLE SODIUM 40 MG/VIAL IV SCH (09:11)
[2022-09-13] MEDS: LEVOTHYROXINE SODIUM 50MCG TABLET PO SCH (09:11)
[2022-09-13] MEDS: ENOXAPARIN 30MG/0.3ML SYR SUBCUT SCH (09:11)
[2022-09-13 09:12] LABS: BG BASE EXCESS 10.4 mmol/L (-2.0-2.0); BG CARBOXYHEMOGLOBIN 0.3 % (0.5-1.5); BG DEOXYHEMOGLOBIN 2.5 % (0.0-5.0); BG FRACTION INSPIRED OXYGEN 30; BG HCO3 ACT 34.4 mmol/L (22.0-26.0); BG METHEMOGLOBIN 0.9 % (0.0-1.5); BG OXYGEN SATURATION 97.5 % (92.0-98.5); BG OXYHEMOGLOBIN 96.3 % (94.0-97.0); BG PCO2 44.2 mmHg (35.0-45.0); BG PH 7.509 (7.350-7.450); BG PO2 104.3 mmHg (75.0-100.0); BG SAMPLE SITE RIGHT RADIAL; BG TOTAL HEMOGLOBIN 7.4 g/dL (12.0-18.0); BG VENT MODE VENT - AC
[2022-09-13 09:18] LABS: MEAN CORPUSCULAR VOLUME 84.7 fL (80.0-94.0); MEAN PLATELET VOLUME 8.2 fl (7.4-10.4); PLATELET 262 x1000/uL (130-400); RED BLOOD CELL COUNT 2.49 mill/uL (4.7-6.1)
[2022-09-13 09:48] LABS: CHLORIDE 99 mEq/L (98-107); HEMATOCRIT. 21.1 % (42.0-52.0)
[2022-09-13] MEDS ORDERED: ACETAZOLAMIDE 250MG TABLET PO NR (10:30)
[2022-09-13] MEDS: POTASSIUM CHLORIDE 20MEQ TABLET SR PO SCH ×2 (12:42→13:03)
[2022-09-13] MEDS: AZITHROMYCIN 500 MG in DEXT 5% WATER 250 ML IV SCH (13:03)
[2022-09-13] MEDS ORDERED: KCL 20MEQ/100ML PREMIX 100 ML IV PRN (16:15)
[2022-09-13 16:43] LABS: FERRITIN 921 ng/mL (22-322)
[2022-09-13] MEDS ORDERED: VANCOMYCIN 1G PREMIX 200 ML IV NR (17:00)
[2022-09-13 17:08] LABS: PLATELET ESTIMATE NORMAL
[2022-09-13 17:46] LABS: CHLORIDE 97 mEq/L (98-107)
[2022-09-13 21:45] LABS: VITAMIN B12 SERUM 1047 pg/mL (211-911)
[2022-09-14] VITALS (17 sets, daily range): BP systolic 102–138; BP diastolic 18–67
[2022-09-14] MEDS: IPRATROPIUM/ALBUTEROL 0.5-3(2.5)MG/3ML NEB NEB SCH ×7 (00:29→23:53)
[2022-09-14] MEDS: CEFTRIAXONE 1,000 MG in DEXTROSE 5% WATER 50 ML IV SCH (02:28)
[2022-09-14] MEDS ORDERED: VANCOMYCIN 500MG PREMIX 100 ML IV SCH (05:00)
[2022-09-14] MEDS: INSULIN LISPRO 100 UNITS/ML SUBCUT SCH ×4 (05:43→18:00)
[2022-09-14] MEDS: BLOOD SUGAR DIAGNOSTIC STRIP TEST SCH ×4 (05:44→18:00)
[2022-09-14 06:44] LABS: BASOPHILS % 0.1 % (0.0-2.0); LYMPHOCYTES % 13.1 % (20.0-50.0); MEAN CORPUSCULAR HEMOGLOBIN 27.7 pg (28.0-32.0); MEAN CORPUSCULAR VOLUME 84.6 fL (80.0-94.0); MEAN PLATELET VOLUME 8.1 fl (7.4-10.4); MONOCYTES % 7.2 % (2.0-8.0); NEUTROPHILS % 78.6 % (40.0-76.0); PLATELET 248 x1000/uL (130-400); RED BLOOD CELL COUNT 2.48 mill/uL (4.7-6.1); RED CELL DISTRIBUTION WIDTH 19.8 % (11.6-14.6)
[2022-09-14 07:13] LABS: CHLORIDE 98 mEq/L (98-107)
[2022-09-14 07:59] LABS: HEMOGLOBIN. 6.9 g/dL (14.0-18.0)
[2022-09-14] MEDS: ENOXAPARIN 30MG/0.3ML SYR SUBCUT SCH (08:03)
[2022-09-14] MEDS: PANTOPRAZOLE SODIUM 40 MG/VIAL IV SCH (08:16)
[2022-09-14] MEDS: LEVOTHYROXINE SODIUM 50MCG TABLET PO SCH (08:16)
[2022-09-14] MEDS ORDERED: POTASSIUM CHLORIDE INJ 60 MEQ in DEXT 5% WATER 250 ML IV ONE (09:30)
[2022-09-14 09:57] LABS: BG BASE EXCESS 6.8 mmol/L (-2.0-2.0); BG CARBOXYHEMOGLOBIN 0.1 % (0.5-1.5); BG FRACTION INSPIRED OXYGEN 30; BG HCO3 ACT 30.5 mmol/L (22.0-26.0); BG METHEMOGLOBIN 0.3 % (0.0-1.5); BG OXYHEMOGLOBIN 98.6 % (94.0-97.0); BG PCO2 39.8 mmHg (35.0-45.0); BG PH 7.502 (7.350-7.450); BG PO2 160.9 mmHg (75.0-100.0); BG SAMPLE SITE RIGHT RADIAL; BG TOTAL HEMOGLOBIN 7.7 g/dL (12.0-18.0); BG VENT MODE VENT - AC
[2022-09-14] MEDS: KCL 20MEQ/100ML X 3 FOR TOTAL KCL 60MEQ/200ML IV SCH ×3 (10:22→14:34)
[2022-09-14] MEDS: VANCOMYCIN 500MG PREMIX 100 ML IV SCH (21:35)
[2022-09-14] MEDS: PIPERACILLIN/TAZOBACTAM 3.375 G in DEXTROSE 5% WATER 50 ML IV SCH (22:47)
[2022-09-15] VITALS (13 sets, daily range): BP systolic 109–134; BP diastolic 56–73
[2022-09-15] MEDS: IPRATROPIUM/ALBUTEROL 0.5-3(2.5)MG/3ML NEB NEB SCH ×5 (04:31→20:10)
[2022-09-15] MEDS: PIPERACILLIN/TAZOBACTAM 3.375 G in DEXTROSE 5% WATER 50 ML IV SCH ×3 (05:51→21:23)
[2022-09-15] MEDS: INSULIN LISPRO 100 UNITS/ML SUBCUT SCH ×5 (05:52→23:12)
[2022-09-15] MEDS: BLOOD SUGAR DIAGNOSTIC STRIP TEST SCH ×5 (05:53→23:12)
[2022-09-15 06:41] LABS: HEMATOCRIT. 25.2 % (42.0-52.0); HEMOGLOBIN. 8.3 g/dL (14.0-18.0); MEAN CORPUSCULAR HEMOGLOBIN 27.9 pg (28.0-32.0); MEAN CORPUSCULAR VOLUME 84.7 fL (80.0-94.0); MEAN PLATELET VOLUME 8.2 fl (7.4-10.4); PLATELET 281 x1000/uL (130-400); RED BLOOD CELL COUNT 2.98 mill/uL (4.7-6.1); RED CELL DISTRIBUTION WIDTH 18.7 % (11.6-14.6)
[2022-09-15 07:13] LABS: CHLORIDE 103 mEq/L (98-107)
[2022-09-15] MEDS ORDERED: POTASSIUM CHLORIDE 20MEQ/PACKET PO SCH (09:00)
[2022-09-15 09:18] LABS: BG BASE EXCESS 5.3 mmol/L (-2.0-2.0); BG CARBOXYHEMOGLOBIN 0.3 % (0.5-1.5); BG FRACTION INSPIRED OXYGEN 30; BG HCO3 ACT 28.9 mmol/L (22.0-26.0); BG METHEMOGLOBIN 0.3 % (0.0-1.5); BG OXYHEMOGLOBIN 97.4 % (94.0-97.0); BG PCO2 38.3 mmHg (35.0-45.0); BG PH 7.495 (7.350-7.450); BG PO2 107.4 mmHg (75.0-100.0); BG SAMPLE SITE RIGHT RADIAL; BG TOTAL HEMOGLOBIN 8.8 g/dL (12.0-18.0); BG TOTAL RESPIRATORY RATE 17 b/min; BG VENT MODE VENT - AC
[2022-09-15] MEDS: PANTOPRAZOLE SODIUM 40 MG/VIAL IV SCH (10:13)
[2022-09-15] MEDS: LEVOTHYROXINE SODIUM 50MCG TABLET PO SCH (10:13)
[2022-09-15] MEDS: VANCOMYCIN 500MG PREMIX 100 ML IV SCH (10:14)
[2022-09-16] VITALS (12 sets, daily range): BP systolic 115–149; BP diastolic 57–80
[2022-09-16] MEDS: IPRATROPIUM/ALBUTEROL 0.5-3(2.5)MG/3ML NEB NEB SCH ×6 (00:32→20:21)
[2022-09-16] MEDS: BLOOD SUGAR DIAGNOSTIC STRIP TEST SCH ×3 (05:16→17:06)
[2022-09-16] MEDS: INSULIN LISPRO 100 UNITS/ML SUBCUT SCH ×3 (05:16→17:06)
[2022-09-16] MEDS: PIPERACILLIN/TAZOBACTAM 3.375 G in DEXTROSE 5% WATER 50 ML IV SCH ×3 (05:17→22:01)
[2022-09-16 06:54] LABS: PLATELET ESTIMATE NORMAL
[2022-09-16 07:11] LABS: BASOPHILS % 0.2 % (0.0-2.0); EOSINOPHILS % 1.7 % (0.0-5.0); HEMATOCRIT. 26.3 % (42.0-52.0); HEMOGLOBIN. 8.7 g/dL (14.0-18.0); LYMPHOCYTES % 15.6 % (20.0-50.0); MEAN CORPUSCULAR HEMOGLOBIN 28.6 pg (28.0-32.0); MEAN CORPUSCULAR VOLUME 86.7 fL (80.0-94.0); MEAN PLATELET VOLUME 8.3 fl (7.4-10.4); MONOCYTES % 4.9 % (2.0-8.0); NEUTROPHILS % 77.6 % (40.0-76.0); PLATELET 238 x1000/uL (130-400); RED BLOOD CELL COUNT 3.04 mill/uL (4.7-6.1); RED CELL DISTRIBUTION WIDTH 19.6 % (11.6-14.6)
[2022-09-16 07:37] LABS: CHLORIDE 107 mEq/L (98-107)
[2022-09-16] MEDS: PANTOPRAZOLE SODIUM 40 MG/VIAL IV SCH (08:20)
[2022-09-16] MEDS: LEVOTHYROXINE SODIUM 50MCG TABLET PO SCH (08:20)
[2022-09-16] MEDS: FAMOTIDINE 20MG/2ML VIAL IV SCH (22:01)
[2022-09-17] VITALS (14 sets, daily range): BP systolic 127–157; BP diastolic 59–81
[2022-09-17] MEDS: IPRATROPIUM/ALBUTEROL 0.5-3(2.5)MG/3ML NEB NEB SCH ×7 (00:21→20:02)
[2022-09-17] MEDS: BLOOD SUGAR DIAGNOSTIC STRIP TEST SCH ×4 (06:00→18:00)
[2022-09-17] MEDS: INSULIN LISPRO 100 UNITS/ML SUBCUT SCH ×4 (06:00→18:00)
[2022-09-17] MEDS: LEVOTHYROXINE SODIUM 50MCG TABLET PO SCH (09:21)
[2022-09-17] MEDS: MEROPENEM 1,000 MG in SODIUM CHLORIDE 0.9% 100 ML IV SCH ×2 (09:22→22:37)
[2022-09-17] MEDS: FAMOTIDINE 20MG/2ML VIAL IV SCH ×2 (09:22→22:37)
[2022-09-17] MEDS ORDERED: LEVETIRACETAM 500MG/5ML CUP PO SCH (21:00)
== END 2022-09-18 00:30 | DRG 870 ==
LOC: ER 02:01 → 5EST 03:15 → EDBEDREQ 03:18
PROVIDERS: ADMIT Hospitalist; ATTEND Hospitalist
PROC: 5A1955Z Respiratory Ventilation, Greater than 96 Consecutive Hours (ICD-10-PCS; principal; 2022-09-11)
PROC: 02HV33Z Insertion of Infusion Device into Superior Vena Cava, Percutaneous Approach (ICD-10-PCS; 2022-09-12)
PROC: B548ZZA Ultrasonography of Superior Vena Cava, Guidance (ICD-10-PCS; 2022-09-12)
PROC: 0B21XFZ Change Tracheostomy Device in Trachea, External Approach (ICD-10-PCS; 2022-09-14)
PROC: 30233N1 Transfusion of Nonautologous Red Blood Cells into Peripheral Vein, Percutaneous Approach (ICD-10-PCS; 2022-09-14)
DX: A41.81 Sepsis due to Enterococcus (principal); G82.50 Quadriplegia, unspecified; J96.21 Acute and chronic respiratory failure with hypoxia; N17.0 Acute kidney failure with tubular necrosis; E43 Unspecified severe protein-calorie malnutrition; G93.41 Metabolic encephalopathy; J18.9 Pneumonia, unspecified organism; E87.1 Hypo-osmolality and hyponatremia; F73 Profound intellectual disabilities; I82.412 Acute embolism and thrombosis of left femoral vein; J44.0 Chronic obstructive pulmonary disease with (acute) lower respiratory infection; N13.30 Unspecified hydronephrosis; Z68.1 Body mass index [BMI] 19.9 or less, adult; Z99.11 Dependence on respirator [ventilator] status; J95.03 Malfunction of tracheostomy stoma; E11.9 Type 2 diabetes mellitus without complications; D63.8 Anemia in other chronic diseases classified elsewhere; D75.839 Thrombocytosis, unspecified; E03.9 Hypothyroidism, unspecified; L89.90 Pressure ulcer of unspecified site, unspecified stage; E83.39 Other disorders of phosphorus metabolism; E83.52 Hypercalcemia; E86.0 Dehydration; E87.5 Hyperkalemia; E87.6 Hypokalemia; G40.909 Epilepsy, unspecified, not intractable, without status epilepticus; I50.9 Heart failure, unspecified; S91.312A Laceration without foreign body, left foot, initial encounter; X58.XXXA Exposure to other specified factors, initial encounter; Z20.822 Contact with and (suspected) exposure to COVID-19; I51.3 Intracardiac thrombosis, not elsewhere classified; Y83.8 Other surgical procedures as the cause of abnormal reaction of the patient, or of later complication, without mention of misadventure at the time of the procedure; R13.10 Dysphagia, unspecified; Z93.1 Gastrostomy status; Z79.4 Long term (current) use of insulin; Z79.899 Other long term (current) drug therapy; Y93.89 Activity, other specified; Y92.89 Other specified places as the place of occurrence of the external cause; Y99.8 Other external cause status; Z68.20 Body mass index [BMI] 20.0-20.9, adult
CPT/HCPCS: 36415; 36573; 36600; 71045; 73630; 74018; 76770; 80048; 80053; 80202; 82375; 82550; 82607; 82728; 82746; 82805; 82962; 83036; 83540; 83550; 83605; 83735; 83880; 83970; 84100; 84132; 84145; 84439; 84443; 84484; 85025; 85027; 86850; 86870; 86900; 86920; 87070; 87077; 87186; 87426; 87430; 87804; 93005; 93306; 93970; 94003; 94640; 97161; 97165; 99285; C1725; C9113; J0456; J0696; J1650; J1815; J1940; J2185; J2543; J3370; J3480; J3490; J7030; J7050; J7060; P9016; A4315